=== PATIENT | male | born 1975 | race Caucasian/White ===

== ENCOUNTER 2025-02-07 14:49 | Inpatient (IN) | payer OTHER, SELFPAY ==
--- OUTSIDE RECORDS SUMMARY | 2025-02-07 14:57 | XMS_ITS ---
Author Organization [facility] Address [address], [place] [id number] Care Team Providers Care Global Regulatory Affairs Manager Name Role Phone No, PCP Primary Care Provider Bethel Byers Unavailable [phone] Nisha Villalobos Unavailable [phone] Encounters Encounter Location Date Provider Diagnosis [facility] [address] [place] [phone] 03/20/2024 Nisha Villalobos Plan Of Treatment No Information Progress Notes * Jeff WILHELMsDOB:1975 (49 yo M)Acc No.[id number]:03/20/2024 Case Management Patient:?Eric WILHELM Provider:?Nisha Villalobos :1975???Age:48 Y???Sex:Male Carlos e:03/20/2024 Address:[address] [place], [place] [phone] Pcp:PCP No Subjective: * Chief Complaints: * ??? * Medical History:? Objective: Assessment: Plan: * Treatment: * Images: Billing Information: * Visit Code:? * Procedure Codes:? Care Plan Details* * Electronic signature of Dell Villalobos on 02/07/2025 at 02:57 PM EDT Sign off status: Pending * Provider:?Nisha Villalobos Date:? Generated for Deidra rogers/Mike/eTransmitting on:?02/07/2025 02:57 PM EDT
[2025-02-07 16:00] VITALS: BP 83/53; PULSE 78; RESP 18; TEMP 36.8; O2SAT 98
[2025-02-07 16:40] VITALS: BP 73/50; PULSE 70; RESP 18; O2SAT 97
[2025-02-07 16:44] VITALS: BMI 20.4
[2025-02-07 18:21] VITALS: BP 88/52; PULSE 68
--- NOTE | 2025-02-07 18:30 | PC.ADMIT ---
Eric was admitted to from [facility]'s ED at 3 pm with diagnosis of AUD and MDD. He was initially brought to the ED for SI- plan to slit wrists and had made superficial cuts when his family told him to stop and called EMS. He admits to daily alcohol abuse- drinks 2 pints of alcohol daily. He has a history of multiple inpatient admissions but this is his first time on . He has a right hand (5th metacarpal fracture he sustained 6 weeks ago and it is taped to pinky finger. He has a hx of gastritis, esophagitis, and MDD. He was calm, cooperative, and subdued on admission.? VS on admission were 83/53, pulse 78, o2 saturation 97% RA, afebrile, RR WNL. Last set of VS at time of transfer from [facility] (per nurse to nurse) were 99/72, pulse 66, rr 16, 98% RA. He was given a water pitcher and encouraged to drink additional water as he was dizzy upon standing. Dr Gaxiola is aware and RN will continue to monitor. He was able to participate in admission assessment, signed a CV with Dr gaxiola and signed TOM forms. He presently denies SI/HI/AVH and is open to [employer] information on smoking cessation but declines NRT. He vapes nicotine all throughout the day and denies all other illicit drug use. Tox screen negative per [facility] ED report and BAL 248. Pt denies SI/HI/AVH presently and reports he is able to ask for help if he feels unsafe. He rates both depression and anxiety 10/10 and feels that I need to stop putting everyone (my family) before me. He did not want to elaborate but he did express his need to learn self care. Routine Hospitalist consult pending at this time. He was oriented to the unit and placed on 15 min safety checks.
[2025-02-07 20:15] VITALS: BP 95/59; PULSE 59; RESP 20; TEMP 36.9; O2SAT 99
[2025-02-08 00:10] VITALS: BP 112/69; PULSE 65; RESP 16; TEMP 37.2; O2SAT 98
[2025-02-08 04:05] VITALS: BP 103/58; PULSE 61; RESP 16; TEMP 36.6; O2SAT 97
[2025-02-08 08:14] VITALS: BP 117/67; PULSE 68; TEMP 36.6; O2SAT 98
--- NOTE | 2025-02-08 11:47 | HO.PM.IMCN ---
History of Present Illness Data of Consult Service Date: 02/08/25 Primary Care Provider: KATHERIN Onael [facility] Reason for consult: Medical evaluation 49-year-old male with a past medical history of renal cell carcinoma status post chemo radio frequency ablation, hepatic steatosis, recent admission to [facility] for erosive esophagitis and upper GI bleeding, alcohol use disorder, right 5th medical carpal fracture, depression with suicidal ideation. He presented to the ED after he called the police and when they arrived he was attempting to cut his arms with a pocket knife. He was brought to the hospital and recommended inpatient psychiatric care for suicidal ideation. Per his medical history he sustained a 5th meta carpal fracture proximally 6 weeks ago. He denies any other significant medical history. Reports to me that he drinks 1 pint of vodka daily, he denies any symptoms of withdrawal and his vital signs are stable. On exam he is awake and alert, denies any concerns. Review of Systems Review of Systems: Denies any shortness of breath, chest pain, dizziness, lightheadedness, abdominal pain or discomfort, nausea vomiting or diarrhea PMFSH Social History Household Members: Family Household Members Other:: [place] Housing: House Do you presently have visiting nurse or other home services: No Patient Tobacco Use Status: Current someday Tobacco user e-Cigarette/Vaping Use: Currently Using Second Hand Smoke Exposure: No Meds Allergies Allergy/AdvReac Type Severity Reaction Status Date / Time No Known Allergies Allergy Unverified 05/29/20 19:25 [No Known Allergies*] Active Medications: Current Medications Acetaminophen (Acetaminophen 325 Mg Tablet) 650 mg PO Q6H PRN PRN Reason: Headache/Pain, Scale 1-10 Al Hydroxide/Mg Hydroxide (Magnesium Hydrox/Alum Hydrox 30 Ml Oral.Susp) 30 ml PO Q6H PRN PRN Reason: Heartburn/Nausea Hydroxyzine HCl (Hydroxyzine Hcl 25 Mg Tablet) 25 mg PO Q6H PRN PRN Reason: mild anxiety Lorazepam (Lorazepam 1 Mg Tablet) 1 mg PO Q2H PRN PRN Reason: CIWA 6-10 Lorazepam (Lorazepam 1 Mg Tablet) 2 mg PO Q2H PRN PRN Reason: CIWA 11 and above Magnesium Hydroxide (Milk Of Magnesia 30 Ml Oral.Susp) 30 ml PO DAILY PRN PRN Reason: Constipation Nicotine (Nicotine 21 Mg Patch.Td24) 21 mg TRANSDERMA DAILY PRN PRN Reason: smoking cessation Nicotine Polacrilex (Nicotine Polacrilex 2 Mg Gum) 4 mg BUCCAL Q2H PRN PRN Reason: Nicotine Cravings Olanzapine (Olanzapine 5 Mg Tablet) 5 mg PO TID PRN PRN Reason: agitation Trazodone HCl (Trazodone Hcl 50 Mg Tablet) 50 mg PO BEDTIME MRX1 PRN PRN Reason: Insomnia Home Medications ?Medication ?Instructions ?Recorded ?Confirmed ?Last Taken ?Type Multivitamin And Mineral 1XD 02/08/25 Unknown History citalopram 20 mg tablet 20 mg PO DAILY 02/08/25 02/08/25 Unknown History clonidine HCl 0.1 mg tablet 0.1 mg PO BID PRN anxiety/sleep 02/08/25 02/08/25 Unknown History hydroxyzine HCl 50 mg tablet mg 1XD PRN anxiety/sleep 02/08/25 Unknown History melatonin 5 mg tablet mg 1XD PRN Sleep 02/08/25 Unknown History pantoprazole 40 mg tablet,delayed mg PO 1XD 02/08/25 Unknown History release pyridoxine (vitamin B6) 50 mg mg 1XD 02/08/25 Unknown History tablet (Vitamin B-6) Physical Exam Vital Signs and Narrative: Vital Signs: Last Vital Signs Temp 97.8 F 02/08/25 08:14 Pulse 68 02/08/25 08:14 Resp 16 02/08/25 04:05 BP 117/67 02/08/25 08:14 Pulse Ox 98 02/08/25 08:14 O2 Del Method Room Air 02/08/25 08:14 BMI result Body Mass Index 20.4 Alert and oriented X3, able to give good history. Neuro: CN II-X11 intact, no deficits, visual acuity intact EYES: PERRLA, EOM intact ENT: hearing intact, uvula midline, lips moist, nares patent no epistaxis Cardiac: S1 S2 RRR, no edema in Lower ext Pulmonary: lungs clear to auscultation, No increased WOB. Abdominal: BS active in all 4 quadrants, no guarding or tenderness MSK: Strength 5/5 upper and lower extremities : Deferred Extremities: no edema in lower extremities Psych: mood stable, calm and cooperative. Skin: Warm and dry, Intact. Multiple scratches to left inner left without evidence of infection. Assessment and Plan (1) Erosive esophagitis: Status: Acute Plan Major depressive disorder with suicidal ideation/alcohol use disorder Treatment per psychiatric team Boxer's fracture right 5th metatarsal Positive deformity present likely due to not being splinted properly [facility]. Sami splint for comfort Erosive esophagitis Patient with recent episodes of bloody vomiting and melena Recently discharged from [facility] 01/09 It was recommended that he take Protonix twice daily for 8 weeks and then change to daily after that. Continue Prilosec twice daily for 8 weeks then decrease to daily. Patient never picked up prescription therefore never started the recommended treatment. Continue to encouraged to abstain from EtOH, avoid NSAIDs He will need to follow up with GI as outpatient H&H stable 12.6/38.4 History of renal cell carcinoma status post ablation He [facility]
[2025-02-08 12:00] VITALS: BP 128/83; PULSE 97; TEMP 36.6; O2SAT 100
[2025-02-08] MEDS: LORazepam 1 MG TABLET PO (13:05)
--- NOTE | 2025-02-08 14:03 | P.HPPS_ITS ---
HPI Date of Service: 02/08/25 Chief Complaint: Alcohol use d/o, MDD Sources of Information: patient interviewed, chart reviewed and crisis/core team assessment reviewed HPI Subjective Notes: Conditional Voluntary and 3 Day Narrative: Patient is a 49-year-old male with history of depression, anxiety, alcohol use disorder who presents for depression and SI in the face of relational strife. Patient reports that about 2-3 weeks ago he was discharged from [facility] following suicidal gesture where he called ambulance himself. Says for the past 2 weeks he has been doing good, taking his medications, taking care of chores, responsibilities, and remaining sober...This past week, however, he drank on Tuesday, a half pt; on Tuesday he lost a credit card in his family members got angry at him, reprimanded him and criticizing him; this hurt his feelings and he again drank about a pt of liquor; feeling frustrated, lonely and he emotional he superficially cut his arm and called the ambulance; reflecting, patient said he was not wanting to but just feeling angry and wanting to hurt himself. Patient says that on his medications, when sober he feels overall in good mood however he acknowledges high level of emotional reactivity; he agrees to starting Intuniv to see if that can help with impulse control. 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 Trauma History: Denies Diagnostics Vital Signs (24Hr): Vital Signs - 24 hr 02/07/25 16:00 02/07/25 16:40 02/07/25 18:21 Temperature 98.2 F Pulse Rate 78 70 68 Respiratory Rate 18 18 Blood Pressure 83/53 L 73/50 L 88/52 L Pulse Oximetry 98 97 Oxygen Delivery Method Room Air Venturi Mask Room Air 02/07/25 20:15 02/08/25 00:10 02/08/25 04:05 Temperature 98.4 F 99.0 F 97.8 F Pulse Rate 59 65 61 Respiratory Rate 20 16 16 Blood Pressure 95/59 L 112/69 103/58 L Pulse Oximetry 99 98 97 Oxygen Delivery Method Room Air Room Air Room Air 02/08/25 08:14 02/08/25 12:00 Temperature 97.8 F 97.9 F Pulse Rate 68 97 Respiratory Rate Blood Pressure 117/67 128/83 Pulse Oximetry 98 100 Oxygen Delivery Method Room Air BMI result Body Mass Index 20.4 Meds/Allergies Meds Home Medications ?Medication ?Instructions ?Recorded ?Confirmed ?Type Multivitamin And Mineral 1XD 02/08/25 History citalopram 20 mg tablet 20 mg PO DAILY 02/08/25 02/08/25 History clonidine HCl 0.1 mg tablet 0.1 mg PO BID PRN anxiety/sleep 02/08/25 02/08/25 History hydroxyzine HCl 50 mg tablet mg 1XD PRN anxiety/sleep 02/08/25 History melatonin 5 mg tablet mg 1XD PRN Sleep 02/08/25 History pantoprazole 40 mg tablet,delayed mg PO 1XD 02/08/25 History release pyridoxine (vitamin B6) 50 mg mg 1XD 02/08/25 History tablet (Vitamin B-6) Allergies Allergies Allergy/AdvReac Type Severity Reaction Status Date / Time No Known Allergies Allergy Unverified 05/29/20 19:25 [No Known Allergies*] Mental Status Exam Mental Status Exam Narrative: Pt is alert and oriented; behavior is cooperative, friendly and calm; patient is not in distress; dressed in hospital attire, unkempt; mood is described as depressed and affect congruent, downcast; eye contact appropriate; Speech is normal rate, volume and prosody and not pressured; saw psychomotor retardation present; thought process is organized and goal directed; Thought content is on tx; otherwise pertinent to relevant topics and without any delusional content, paranoid ideations or grandiosity; denies any SI/HI. Denies AVH and there is no evidence of perceptual disturbance. Patients insight and judgment appear intact. Assessment & Plan Assessment & Plan (1) Major depressive disorder: Status: Acute Code(s): F32.9 - Major depressive disorder, single episode, unspecified (2) Alcohol use disorder: Status: Acute Code(s): F10.90 - Alcohol use, unspecified, uncomplicated Plan Patient is a 49-year-old male with history of depression, anxiety, alcohol use disorder who presents for depression and SI in the face of relational strife. Patient reports that about 2-3 weeks ago he was discharged from [facility] following suicidal gesture where he called ambulance himself. Says for the past 2 weeks he has been doing good, taking his medications, taking care of chores, responsibilities, and remaining sober...This past week, however, he drank on Tuesday, a half pt; on Tuesday he lost a credit card in his family members got angry at him, reprimanded him and criticizing him; this hurt his feelings and he again drank about a pt of liquor; feeling frustrated, lonely and he emotional he superficially cut his arm and called the ambulance; reflecting, patient said he was not wanting to but just feeling angry and wanting to hurt himself. Patient says that on his medications, when sober he feels overall in good mood however he acknowledges high level of emotional reactivity; he agrees to starting Intuniv to see if that can help with impulse control. Patient denies AVH; no manic behaviors Formulation/clinical reasoning: Patient struggles with emotional reactivity; agrees to try Intuniv understanding the risks/side effects, to see if this can help with impulsivity. Otherwise continue on home medication regimen Patient not in withdrawal; will DC CIWA Plan: CV Q 15 minute checks Start Intuniv 1 mg daily Continue home medications DC CIWA Patient educated on: diagnosis, medication risk/benefits, substance abuse and therapeutic strategies Informed Consent: understands Reason for continued inpatient stay Substantial Risk for: rapid decompensation Statement Statement: I have reviewed the history and physical and performed a pertinent examination on my patient. No changes have occurred unless specified. If the History and Physical was not performed prior to admission, the Hospitalist's service will be consulted for completing the admission physical. Time Spent With Patient Time: Total time managing care of this patient today ____ minutes.
[2025-02-08] MEDS: guanFACINE HCl ER 1 MG TAB.ER.24H PO (14:41)
[2025-02-08 20:00] VITALS: BP 126/78; PULSE 81; RESP 16; TEMP 36.8; O2SAT 100
[2025-02-08] MEDS: Milk of Magnesia 30 ML ORAL.SUSP PO (22:05)
[2025-02-08 22:06] VITALS: BP 136/92
[2025-02-08] MEDS: hydrOXYzine HCL 25 MG TABLET PO (22:06)
[2025-02-08] MEDS: cloNIDine HCL 0.1 MG TABLET PO (22:06)
[2025-02-08] MEDS: Acetaminophen 325 MG TABLET 650 MG PO (22:06)
[2025-02-09 07:40] VITALS: BP 114/68; PULSE 64; TEMP 36.6; O2SAT 99
[2025-02-09] MEDS: Omeprazole 20 MG CAPSULE.DR PO (08:15)
[2025-02-09 08:58] VITALS: BP 120/70
[2025-02-09] MEDS: Escitalopram Oxalate 10 MG TABLET PO (08:58)
[2025-02-09] MEDS: cloNIDine HCL 0.1 MG TABLET PO ×2 (08:58→21:47)
[2025-02-09] MEDS: guanFACINE HCl ER 1 MG TAB.ER.24H PO (08:58)
[2025-02-09 09:18] LABS: Estimated Average Glucose 85 mg/dL; Hemoglobin A1C 83.3244 umol/L; Hemoglobin A1c % 4.6 % (<6.0); Total Hemoglobin (HGBA1C) 3174.1168 umol/L
[2025-02-09 09:35] LABS: Alanine Aminotransferase 29 U/L (0-40); Albumin Level 3.9 g/dL (3.5-5.0); Alkaline Phosphatase 85 U/L (39-117); Anion Gap 12 (12-20); Aspartate Amino Transferase 30 U/L (5-37); Bilirubin Total 0.1 mg/dL (0.0-1.0); Blood Urea Nitrogen 19 mg/dL (9-16); Calcium 8.8 mg/dL (8.4-10.2); Carbon Dioxide 22 mmol/L (22-29); Chloride 113 mmol/L (96-108); Cholesterol 231 mg/dL (<200); Creatinine Clr Calc Pharmacy 70.4; Estimated Glomerular Filt Rate > 60; Glucose Random 85 mg/dL (60-115); HDL Cholesterol 50 mg/dL (>40); Sodium 143 mmol/L (135-145); Total Protein 6.6 g/dL (6.5-8.0); Triglycerides 423 mg/dL (<150)
[2025-02-09 09:40] LABS: TSH reflex Free T4 1.96 uIU/mL (0.32-4.0)
--- NOTE | 2025-02-09 10:34 | HO.PSYCHPN ---
Subjective Subjective Date of Service: 02/09/25 Reason For Visit: Alcohol use d/o, MDD Subjective Notes: Conditional Voluntary Interim History: Patient was seen and discussed in rounds today. Records and plans were reviewed. CIWA protocol was discontinued yesterday with no subsequent signs.. In bed a lot. Attending some groups. Slept 7 hours without trazodone. No SI. No changes were made today Review of Systems Review of Systems Yes all other systems are reviewed and are negative Mental Status Exam Mental Status Exam Narrative: In today's visit he is alert, pleasant and interactive. Normal speech. Little eye contact. Affect is appropriate and subdued. No signs of psychosis. No SI. Cognitively intact. Judgment is intact Diagnostics Vital Signs (24Hr): Vital Signs - 24 hr 02/08/25 12:00 02/08/25 20:00 02/08/25 22:06 Temperature 97.9 F 98.2 F Pulse Rate 97 81 Respiratory Rate 16 Blood Pressure 128/83 126/78 136/92 H Pulse Oximetry 100 100 Oxygen Delivery Method Room Air 02/09/25 07:40 02/09/25 08:58 Temperature 97.8 F Pulse Rate 64 Respiratory Rate Blood Pressure 114/68 120/70 Pulse Oximetry 99 Oxygen Delivery Method Room Air BMI result Body Mass Index 20.4 Labs 02/09/25 08:36 Labs: Laboratory Results - last 48 hr 02/09/25 08:36 Sodium 143 Potassium 4.0 Chloride 113 H Carbon Dioxide 22 Anion Gap 12 BUN 19 H Creatinine 1.02 Estim Creat Clear Calc 70.4 Estimated GFR > 60 Random Glucose 85 Estimat Average Glucose 85 Hemoglobin A1c % 4.6 Calcium 8.8 Total Bilirubin 0.1 AST 30 ALT 29 Alkaline Phosphatase 85 Total Protein 6.6 Albumin 3.9 Triglycerides 423 H Cholesterol 231 H LDL Cholesterol, Calc TNP HDL Cholesterol 50 TSH 1.96 Medications Medications Current Medications Acetaminophen (Acetaminophen 325 Mg Tablet) 650 mg PO Q6H PRN PRN Reason: Headache/Pain, Scale 1-10 Last Admin: 02/08/25 22:06 Dose: 650 mg Al Hydroxide/Mg Hydroxide (Magnesium Hydrox/Alum Hydrox 30 Ml Oral.Susp) 30 ml PO Q6H PRN PRN Reason: Heartburn/Nausea Clonidine HCl (Clonidine Hcl 0.1 Mg Tablet) 0.1 mg PO Q4H PRN; Protocol PRN Reason: moderate anxiety/sleep Last Admin: 02/08/25 22:06 Dose: 0.1 mg Clonidine HCl (Clonidine Hcl 0.1 Mg Tablet) 0.1 mg PO DAILY [facility]; Protocol Last Admin: 02/09/25 08:58 Dose: 0.1 mg Escitalopram Oxalate (Escitalopram Oxalate 10 Mg Tablet) 10 mg PO DAILY [facility] Last Admin: 02/09/25 08:58 Dose: 10 mg Guanfacine HCl (Guanfacine Hcl Er 1 Mg Tab.Er.24h) 1 mg PO DAILY [facility] Last Admin: 02/09/25 08:58 Dose: 1 mg Hydroxyzine HCl (Hydroxyzine Hcl 25 Mg Tablet) 25 mg PO Q6H PRN PRN Reason: mild anxiety Last Admin: 02/08/25 22:06 Dose: 25 mg Magnesium Hydroxide (Milk Of Magnesia 30 Ml Oral.Susp) 30 ml PO DAILY PRN PRN Reason: Constipation Last Admin: 02/08/25 22:05 Dose: 30 ml Nicotine (Nicotine 21 Mg Patch.Td24) 21 mg TRANSDERMA DAILY PRN PRN Reason: smoking cessation Nicotine Polacrilex (Nicotine Polacrilex 2 Mg Gum) 4 mg BUCCAL Q2H PRN PRN Reason: Nicotine Cravings Olanzapine (Olanzapine 5 Mg Tablet) 5 mg PO TID PRN PRN Reason: agitation Omeprazole (Omeprazole 20 Mg Capsule.Dr) 20 mg PO BID@0630,1630 [facility] Last Admin: 02/09/25 08:15 Dose: 20 mg Trazodone HCl (Trazodone Hcl 50 Mg Tablet) 50 mg PO BEDTIME MRX1 PRN PRN Reason: Insomnia Allergies Allergies Allergy/AdvReac Type Severity Reaction Status Date / Time No Known Allergies Allergy Unverified 05/29/20 19:25 [No Known Allergies*] Assessment & Plan Assessment & Plan (1) Major depressive disorder: Status: Acute Code(s): F32.9 - Major depressive disorder, single episode, unspecified (2) Alcohol use disorder: Status: Acute Code(s): F10.90 - Alcohol use, unspecified, uncomplicated Plan Patient is a 49-year-old male with history of depression, anxiety, alcohol use disorder who presents for depression and SI in the face of relational strife. Patient reports that about 2-3 weeks ago he was discharged from [facility] following suicidal gesture where he called ambulance himself. Says for the past 2 weeks he has been doing good, taking his medications, taking care of chores, responsibilities, and remaining sober...This past week, however, he drank on Tuesday, a half pt; on Tuesday he lost a credit card in his family members got angry at him, reprimanded him and criticizing him; this hurt his feelings and he again drank about a pt of liquor; feeling frustrated, lonely and he emotional he superficially cut his arm and called the ambulance; reflecting, patient said he was not wanting to but just feeling angry and wanting to hurt himself. Patient says that on his medications, when sober he feels overall in good mood however he acknowledges high level of emotional reactivity; he agrees to starting Intuniv to see if that can help with impulse control. Patient denies AVH; no manic behaviors Formulation/clinical reasoning: Patient struggles with emotional reactivity; agrees to try Intuniv understanding the risks/side effects, to see if this can help with impulsivity. Otherwise continue on home medication regimen Patient not in withdrawal; will DC CIWA Plan: CV Q 15 minute checks Start Intuniv 1 mg daily Continue home medications DC CIWA 02/09: Continue current regimen and plans. Reason for continued inpatient stay Substantial Risk for: med/psych decompensation Time Spent With Patient Time: Total time managing care of this patient today ____ minutes.
[2025-02-09 19:45] VITALS: BP 125/73; PULSE 71; RESP 16; TEMP 36.6; O2SAT 100
[2025-02-09] MEDS: hydrOXYzine HCL 25 MG TABLET PO (21:46)
[2025-02-09 21:47] VITALS: BP 104/61
[2025-02-10 08:00] VITALS: BP 101/68; PULSE 76; TEMP 36.6; O2SAT 98
--- NOTE | 2025-02-10 08:41 | HO.PSYCHPN ---
Subjective Subjective Date of Service: 02/10/25 Reason For Visit: Alcohol use d/o, MDD Subjective Notes: Conditional Voluntary Interim History: Patient was seen and discussed in rounds today. Records and plans were reviewed. He has been stable and is doing well. No complaints or side effects. No indications of withdrawal symptoms. He attended 2 groups. Eating and sleeping well. He wanted to switch his Prilosec to Protonix which is unavailable here. No SI. No changes were made today Review of Systems Review of Systems Yes all other systems are reviewed and are negative Mental Status Exam Mental Status Exam Narrative: In today's visit he is alert, pleasant and interactive. Normal speech. Little eye contact. Affect is appropriate and subdued. No signs of psychosis. No SI. Cognitively intact. Judgment is intact Diagnostics Vital Signs (24Hr): Vital Signs - 24 hr 02/09/25 08:58 02/09/25 19:45 02/09/25 21:47 Temperature 97.8 F Pulse Rate 71 Respiratory Rate 16 Blood Pressure 120/70 125/73 104/61 Pulse Oximetry 100 Oxygen Delivery Method Room Air 02/10/25 08:00 Temperature 97.8 F Pulse Rate 76 Respiratory Rate Blood Pressure 101/68 Pulse Oximetry 98 Oxygen Delivery Method Room Air BMI result Body Mass Index 20.4 Labs 02/09/25 08:36 Labs: Laboratory Results - last 48 hr 02/09/25 08:36 Sodium 143 Potassium 4.0 Chloride 113 H Carbon Dioxide 22 Anion Gap 12 BUN 19 H Creatinine 1.02 Estim Creat Clear Calc 70.4 Estimated GFR > 60 Random Glucose 85 Estimat Average Glucose 85 Hemoglobin A1c % 4.6 Calcium 8.8 Total Bilirubin 0.1 AST 30 ALT 29 Alkaline Phosphatase 85 Total Protein 6.6 Albumin 3.9 Triglycerides 423 H Cholesterol 231 H LDL Cholesterol, Calc TNP HDL Cholesterol 50 TSH 1.96 Medications Medications Current Medications Acetaminophen (Acetaminophen 325 Mg Tablet) 650 mg PO Q6H PRN PRN Reason: Headache/Pain, Scale 1-10 Last Admin: 02/08/25 22:06 Dose: 650 mg Al Hydroxide/Mg Hydroxide (Magnesium Hydrox/Alum Hydrox 30 Ml Oral.Susp) 30 ml PO Q6H PRN PRN Reason: Heartburn/Nausea Clonidine HCl (Clonidine Hcl 0.1 Mg Tablet) 0.1 mg PO Q4H PRN; Protocol PRN Reason: moderate anxiety/sleep Last Admin: 02/09/25 21:47 Dose: 0.1 mg Clonidine HCl (Clonidine Hcl 0.1 Mg Tablet) 0.1 mg PO DAILY [facility]; Protocol Last Admin: 02/09/25 08:58 Dose: 0.1 mg Escitalopram Oxalate (Escitalopram Oxalate 10 Mg Tablet) 10 mg PO DAILY [facility] Last Admin: 02/09/25 08:58 Dose: 10 mg Guanfacine HCl (Guanfacine Hcl Er 1 Mg Tab.Er.24h) 1 mg PO DAILY [facility] Last Admin: 02/09/25 08:58 Dose: 1 mg Hydroxyzine HCl (Hydroxyzine Hcl 25 Mg Tablet) 25 mg PO Q6H PRN PRN Reason: mild anxiety Last Admin: 02/09/25 21:46 Dose: 25 mg Magnesium Hydroxide (Milk Of Magnesia 30 Ml Oral.Susp) 30 ml PO DAILY PRN PRN Reason: Constipation Last Admin: 02/08/25 22:05 Dose: 30 ml Nicotine (Nicotine 21 Mg Patch.Td24) 21 mg TRANSDERMA DAILY PRN PRN Reason: smoking cessation Nicotine Polacrilex (Nicotine Polacrilex 2 Mg Gum) 4 mg BUCCAL Q2H PRN PRN Reason: Nicotine Cravings Olanzapine (Olanzapine 5 Mg Tablet) 5 mg PO TID PRN PRN Reason: agitation Omeprazole (Omeprazole 20 Mg Capsule.Dr) 20 mg PO BID@0630,1630 [facility] Last Admin: 02/09/25 17:41 Dose: Not Given Trazodone HCl (Trazodone Hcl 50 Mg Tablet) 50 mg PO BEDTIME MRX1 PRN PRN Reason: Insomnia Allergies Allergies Allergy/AdvReac Type Severity Reaction Status Date / Time No Known Allergies Allergy Unverified 05/29/20 19:25 [No Known Allergies*] Assessment & Plan Assessment & Plan (1) Major depressive disorder: Status: Acute Code(s): F32.9 - Major depressive disorder, single episode, unspecified (2) Alcohol use disorder: Status: Acute Code(s): F10.90 - Alcohol use, unspecified, uncomplicated Plan Patient is a 49-year-old male with history of depression, anxiety, alcohol use disorder who presents for depression and SI in the face of relational strife. Patient reports that about 2-3 weeks ago he was discharged from [facility] following suicidal gesture where he called ambulance himself. Says for the past 2 weeks he has been doing good, taking his medications, taking care of chores, responsibilities, and remaining sober...This past week, however, he drank on Tuesday, a half pt; on Tuesday he lost a credit card in his family members got angry at him, reprimanded him and criticizing him; this hurt his feelings and he again drank about a pt of liquor; feeling frustrated, lonely and he emotional he superficially cut his arm and called the ambulance; reflecting, patient said he was not wanting to but just feeling angry and wanting to hurt himself. Patient says that on his medications, when sober he feels overall in good mood however he acknowledges high level of emotional reactivity; he agrees to starting Intuniv to see if that can help with impulse control. Patient denies AVH; no manic behaviors Formulation/clinical reasoning: Patient struggles with emotional reactivity; agrees to try Intuniv understanding the risks/side effects, to see if this can help with impulsivity. Otherwise continue on home medication regimen Patient not in withdrawal; will DC CIWA Plan: CV Q 15 minute checks Start Intuniv 1 mg daily Continue home medications DC CIWA 02/10: Continue current regimen and plans. Patient educated on: medication risk/benefits Reason for continued inpatient stay Substantial Risk for: med/psych decompensation Time Spent With Patient Time: Total time managing care of this patient today ____ minutes.
[2025-02-10] MEDS: Escitalopram Oxalate 10 MG TABLET PO (09:06)
[2025-02-10 09:07] VITALS: BP 101/68
[2025-02-10] MEDS: guanFACINE HCl ER 1 MG TAB.ER.24H PO (09:07)
[2025-02-10] MEDS: cloNIDine HCL 0.1 MG TABLET PO ×2 (09:07→20:31)
[2025-02-10] MEDS: Acetaminophen 325 MG TABLET 650 MG PO (13:42)
[2025-02-10] MEDS: Omeprazole 20 MG CAPSULE.DR PO (17:08)
[2025-02-10 20:00] VITALS: BP 99/63; PULSE 66; RESP 15; TEMP 36.6; O2SAT 100
[2025-02-10] MEDS: hydrOXYzine HCL 25 MG TABLET PO (20:32)
[2025-02-11] MEDS: Omeprazole 20 MG CAPSULE.DR PO ×2 (06:47→16:28)
[2025-02-11 08:00] VITALS: BP 97/65; PULSE 68; RESP 18; TEMP 36.8; O2SAT 99
[2025-02-11 08:43] VITALS: BP 97/65
[2025-02-11] MEDS: guanFACINE HCl ER 1 MG TAB.ER.24H PO (08:43)
[2025-02-11] MEDS: Escitalopram Oxalate 10 MG TABLET PO (08:43)
[2025-02-11] MEDS: Acetaminophen 325 MG TABLET 650 MG PO (11:57)
[2025-02-11 20:00] VITALS: BP 121/74; PULSE 75; TEMP 37.2; O2SAT 100
[2025-02-11] MEDS: cloNIDine HCL 0.1 MG TABLET PO (21:04)
[2025-02-11] MEDS: hydrOXYzine HCL 25 MG TABLET PO (21:04)
--- NOTE | 2025-02-11 21:07 | HO.PSYCHPN ---
Subjective Subjective Date of Service: 02/11/25 Reason For Visit: Alcohol use d/o, MDD Interim History: met with patient; discussed with team pt reports mood is good' and he feels back to his regular self; no SI. Pt eating and sleeping well; wants to discuss discharge. Mental Status Exam Mental Status Exam Narrative: Pt is alert and oriented; behavior is cooperative, friendly and calm; patient is not in distress; dressed in casual attire with adequate hygiene; mood is described as good and affect congruent; eye contact appropriate; Speech is normal rate, volume and prosody and not pressured; no psychomotor agitation/retardation present; thought process is organized and goal directed; Thought content is on tx; otherwise pertinent to relevant topics and without any delusional content, paranoid ideations or grandiosity; denies any SI/HI. Denies AVH and there is no evidence of perceptual disturbance. Patients insight and judgment appear intact. Diagnostics Vital Signs (24Hr): Vital Signs - 24 hr 02/11/25 08:00 02/11/25 08:43 02/11/25 20:00 Temperature 98.2 F 98.9 F Pulse Rate 68 75 Respiratory Rate 18 Blood Pressure 97/65 97/65 121/74 Pulse Oximetry 99 100 Oxygen Delivery Method Room Air Room Air BMI result Body Mass Index 20.4 Labs 02/09/25 08:36 Medications Medications Current Medications Acetaminophen (Acetaminophen 325 Mg Tablet) 650 mg PO Q6H PRN PRN Reason: Headache/Pain, Scale 1-10 Last Admin: 02/11/25 11:57 Dose: 650 mg Al Hydroxide/Mg Hydroxide (Magnesium Hydrox/Alum Hydrox 30 Ml Oral.Susp) 30 ml PO Q6H PRN PRN Reason: Heartburn/Nausea Clonidine HCl (Clonidine Hcl 0.1 Mg Tablet) 0.1 mg PO Q4H PRN; Protocol PRN Reason: moderate anxiety/sleep Last Admin: 02/10/25 20:31 Dose: 0.1 mg Clonidine HCl (Clonidine Hcl 0.1 Mg Tablet) 0.1 mg PO DAILY [facility]; Protocol Last Admin: 02/11/25 08:43 Dose: Not Given Escitalopram Oxalate (Escitalopram Oxalate 10 Mg Tablet) 10 mg PO DAILY [facility] Last Admin: 02/11/25 08:43 Dose: 10 mg Guanfacine HCl (Guanfacine Hcl Er 1 Mg Tab.Er.24h) 1 mg PO DAILY [facility] Last Admin: 02/11/25 08:43 Dose: 1 mg Hydroxyzine HCl (Hydroxyzine Hcl 25 Mg Tablet) 25 mg PO Q6H PRN PRN Reason: mild anxiety Last Admin: 02/10/25 20:32 Dose: 25 mg Magnesium Hydroxide (Milk Of Magnesia 30 Ml Oral.Susp) 30 ml PO DAILY PRN PRN Reason: Constipation Last Admin: 02/08/25 22:05 Dose: 30 ml Nicotine (Nicotine 21 Mg Patch.Td24) 21 mg TRANSDERMA DAILY PRN PRN Reason: smoking cessation Nicotine Polacrilex (Nicotine Polacrilex 2 Mg Gum) 4 mg BUCCAL Q2H PRN PRN Reason: Nicotine Cravings Olanzapine (Olanzapine 5 Mg Tablet) 5 mg PO TID PRN PRN Reason: agitation Omeprazole (Omeprazole 20 Mg Capsule.Dr) 20 mg PO BID@0630,1630 [facility] Last Admin: 02/11/25 16:28 Dose: 20 mg Trazodone HCl (Trazodone Hcl 50 Mg Tablet) 50 mg PO BEDTIME MRX1 PRN PRN Reason: Insomnia Allergies Allergies Allergy/AdvReac Type Severity Reaction Status Date / Time No Known Allergies Allergy Unverified 05/29/20 19:25 [No Known Allergies*] Assessment & Plan Assessment & Plan (1) Major depressive disorder: Status: Acute Code(s): F32.9 - Major depressive disorder, single episode, unspecified (2) Alcohol use disorder: Status: Acute Code(s): F10.90 - Alcohol use, unspecified, uncomplicated Plan Patient is a 49-year-old male with history of depression, anxiety, alcohol use disorder who presents for depression and SI in the face of relational strife. Patient reports that about 2-3 weeks ago he was discharged from [facility] following suicidal gesture where he called ambulance himself. Says for the past 2 weeks he has been doing good, taking his medications, taking care of chores, responsibilities, and remaining sober...This past week, however, he drank on Tuesday, a half pt; on Tuesday he lost a credit card in his family members got angry at him, reprimanded him and criticizing him; this hurt his feelings and he again drank about a pt of liquor; feeling frustrated, lonely and he emotional he superficially cut his arm and called the ambulance; reflecting, patient said he was not wanting to but just feeling angry and wanting to hurt himself. Patient says that on his medications, when sober he feels overall in good mood however he acknowledges high level of emotional reactivity; he agrees to starting Intuniv to see if that can help with impulse control. Patient denies AVH; no manic behaviors Formulation/clinical reasoning: Patient struggles with emotional reactivity; agrees to try Intuniv understanding the risks/side effects, to see if this can help with impulsivity. Otherwise continue on home medication regimen Patient not in withdrawal; will DC [facility] 02/11 pt reports mood is good' and he feels back to his regular self; no SI. Pt eating and sleeping well; wants to discuss discharge. -in good behavioral/impulse control Plan: CV Q 15 minute checks Intuniv 1 mg daily Continue home medications DC [facility]WA 02/10: Continue current regimen and plans. Patient educated on: diagnosis Informed Consent: understands Reason for continued inpatient stay Substantial Risk for: stable for discharge Time Spent With Patient Time: Total time managing care of this patient today ____ minutes.
[2025-02-12] MEDS: Omeprazole 20 MG CAPSULE.DR PO ×2 (06:00→17:56)
[2025-02-12 08:00] VITALS: BP 102/65; PULSE 78; RESP 17; TEMP 37.1; O2SAT 98
[2025-02-12] MEDS: cloNIDine HCL 0.1 MG TABLET PO ×2 (08:51→21:05)
[2025-02-12] MEDS: Escitalopram Oxalate 10 MG TABLET PO (08:52)
[2025-02-12] MEDS: guanFACINE HCl ER 1 MG TAB.ER.24H PO (08:52)
[2025-02-12] MEDS: Nicotine Polacrilex 2 MG GUM 4 MG BUCCAL (17:58)
[2025-02-12] MEDS: OLANZapine 5 MG TABLET PO (18:13)
[2025-02-12 20:00] VITALS: BP 111/69; PULSE 78; TEMP 36.9; O2SAT 100
[2025-02-12 21:05] VITALS: BP 111/69
[2025-02-12] MEDS: hydrOXYzine HCL 25 MG TABLET PO (21:05)
[2025-02-12] MEDS: traZODone HCL 50 MG TABLET PO (23:35)
[2025-02-13] MEDS: Omeprazole 20 MG CAPSULE.DR PO ×2 (06:32→18:57)
[2025-02-13 08:00] VITALS: BP 101/70; PULSE 80; RESP 16; TEMP 36.8; O2SAT 97
[2025-02-13 08:49] VITALS: BP 101/70
[2025-02-13] MEDS: cloNIDine HCL 0.1 MG TABLET PO ×2 (08:49→21:08)
[2025-02-13] MEDS: guanFACINE HCl ER 1 MG TAB.ER.24H PO (08:49)
[2025-02-13] MEDS: Escitalopram Oxalate 10 MG TABLET PO (08:50)
[2025-02-13 20:00] VITALS: BP 114/74; PULSE 84; TEMP 36.9; O2SAT 98
[2025-02-13] MEDS: hydrOXYzine HCL 25 MG TABLET PO (21:07)
[2025-02-13 21:08] VITALS: BP 114/74
[2025-02-13] MEDS: traZODone HCL 50 MG TABLET PO (21:08)
[2025-02-14] MEDS: Acetaminophen 325 MG TABLET 650 MG PO (06:17)
[2025-02-14] MEDS: Omeprazole 20 MG CAPSULE.DR PO (06:17)
[2025-02-14 08:00] VITALS: BP 99/64; PULSE 80; RESP 16; TEMP 36.9; O2SAT 98
[2025-02-14] MEDS: cloNIDine HCL 0.1 MG TABLET PO (08:36)
[2025-02-14] MEDS: guanFACINE HCl ER 1 MG TAB.ER.24H PO (08:37)
[2025-02-14] MEDS: Escitalopram Oxalate 10 MG TABLET PO (08:37)
--- NOTE | 2025-02-14 09:17 | HO.PSYCHPN ---
Subjective Subjective Date of Service: 02/12/25 Reason For Visit: Alcohol use d/o, MDD Interim History: Late entry note for patient seen on 02/12/2025; discussed with team Continues to report that he is doing well, mood is good, future oriented, able to focus and grateful for help received. Looking forward to discharge Mental Status Exam Mental Status Exam Narrative: Pt is alert and oriented; behavior is cooperative, friendly and calm; patient is not in distress; dressed in casual attire with adequate hygiene; mood is described as good and affect congruent; eye contact appropriate; Speech is normal rate, volume and prosody and not pressured; no psychomotor agitation/retardation present; thought process is organized and goal directed; Thought content is on tx; otherwise pertinent to relevant topics and without any delusional content, paranoid ideations or grandiosity; denies any SI/HI. Denies AVH and there is no evidence of perceptual disturbance. Patients insight and judgment appear intact. Diagnostics Vital Signs (24Hr): Vital Signs - 24 hr 02/13/25 20:00 02/13/25 21:08 02/14/25 08:00 Temperature 98.4 F 98.5 F Pulse Rate 84 80 Respiratory Rate 16 Blood Pressure 114/74 114/74 99/64 Pulse Oximetry 98 98 Oxygen Delivery Method Room Air Room Air BMI result Body Mass Index 20.4 Labs 02/09/25 08:36 Medications Medications Current Medications Acetaminophen (Acetaminophen 325 Mg Tablet) 650 mg PO Q6H PRN PRN Reason: Headache/Pain, Scale 1-10 Last Admin: 02/14/25 06:17 Dose: 650 mg Al Hydroxide/Mg Hydroxide (Magnesium Hydrox/Alum Hydrox 30 Ml Oral.Susp) 30 ml PO Q6H PRN PRN Reason: Heartburn/Nausea Clonidine HCl (Clonidine Hcl 0.1 Mg Tablet) 0.1 mg PO Q4H PRN; Protocol PRN Reason: moderate anxiety/sleep Last Admin: 02/13/25 21:08 Dose: 0.1 mg Clonidine HCl (Clonidine Hcl 0.1 Mg Tablet) 0.1 mg PO DAILY [facility]; Protocol Last Admin: 02/14/25 08:36 Dose: 0.1 mg Escitalopram Oxalate (Escitalopram Oxalate 10 Mg Tablet) 10 mg PO DAILY [facility] Last Admin: 02/14/25 08:37 Dose: 10 mg Guanfacine HCl (Guanfacine Hcl Er 1 Mg Tab.Er.24h) 1 mg PO DAILY [facility] Last Admin: 02/14/25 08:37 Dose: 1 mg Hydroxyzine HCl (Hydroxyzine Hcl 25 Mg Tablet) 25 mg PO Q6H PRN PRN Reason: mild anxiety Last Admin: 02/13/25 21:07 Dose: 25 mg Magnesium Hydroxide (Milk Of Magnesia 30 Ml Oral.Susp) 30 ml PO DAILY PRN PRN Reason: Constipation Last Admin: 02/08/25 22:05 Dose: 30 ml Nicotine (Nicotine 21 Mg Patch.Td24) 21 mg TRANSDERMA DAILY PRN PRN Reason: smoking cessation Nicotine Polacrilex (Nicotine Polacrilex 2 Mg Gum) 4 mg BUCCAL Q2H PRN PRN Reason: Nicotine Cravings Last Admin: 02/12/25 17:58 Dose: 4 mg Olanzapine (Olanzapine 5 Mg Tablet) 5 mg PO TID PRN PRN Reason: agitation Last Admin: 02/12/25 18:13 Dose: 5 mg Omeprazole (Omeprazole 20 Mg Capsule.Dr) 20 mg PO BID@0630,1630 [facility] Last Admin: 02/14/25 06:17 Dose: 20 mg Trazodone HCl (Trazodone Hcl 50 Mg Tablet) 50 mg PO BEDTIME MRX1 PRN PRN Reason: Insomnia Last Admin: 02/13/25 21:08 Dose: 50 mg Allergies Allergies Allergy/AdvReac Type Severity Reaction Status Date / Time No Known Allergies Allergy Unverified 05/29/20 19:25 [No Known Allergies*] Assessment & Plan Assessment & Plan (1) Major depressive disorder: Status: Acute Code(s): F32.9 - Major depressive disorder, single episode, unspecified (2) Alcohol use disorder: Status: Acute Code(s): F10.90 - Alcohol use, unspecified, uncomplicated Plan Patient is a 49-year-old male with history of depression, anxiety, alcohol use disorder who presents for depression and SI in the face of relational strife. Patient reports that about 2-3 weeks ago he was discharged from [facility] following suicidal gesture where he called ambulance himself. Says for the past 2 weeks he has been doing good, taking his medications, taking care of chores, responsibilities, and remaining sober...This past week, however, he drank on Tuesday, a half pt; on Tuesday he lost a credit card in his family members got angry at him, reprimanded him and criticizing him; this hurt his feelings and he again drank about a pt of liquor; feeling frustrated, lonely and he emotional he superficially cut his arm and called the ambulance; reflecting, patient said he was not wanting to but just feeling angry and wanting to hurt himself. Patient says that on his medications, when sober he feels overall in good mood however he acknowledges high level of emotional reactivity; he agrees to starting Intuniv to see if that can help with impulse control. Patient denies AVH; no manic behaviors Formulation/clinical reasoning: Patient struggles with emotional reactivity; agrees to try Intuniv understanding the risks/side effects, to see if this can help with impulsivity. Otherwise continue on home medication regimen Patient not in withdrawal; will DC [facility] 02/11 pt reports mood is good' and he feels back to his regular self; no SI. Pt eating and sleeping well; wants to discuss discharge. -in good behavioral/impulse control 02/12 Continues to report that he is doing well, mood is good, future oriented, able to focus and grateful for help received. Looking forward to discharge Plan: CV Q 15 minute checks Intuniv 1 mg daily Continue home medications DC CIWA . Patient educated on: diagnosis and medication risk/benefits Informed Consent: understands Reason for continued inpatient stay Substantial Risk for: stable for discharge Time Spent With Patient Time: Total time managing care of this patient today ____ minutes.
--- NOTE | 2025-02-14 09:18 | HO.PSYCHPN ---
Subjective Subjective Date of Service: 02/13/25 Reason For Visit: Alcohol use d/o, MDD Interim History: Late entry note for patient seen on 02/13/2025; discussed with team Remained stable and focused on discharge; no complaints no requests Mental Status Exam Mental Status Exam Narrative: Pt is alert and oriented; behavior is cooperative, friendly and calm; can get triggered by peers in the milieu with outburst but able to be redirected; patient is not in distress; dressed in casual attire with adequate hygiene; mood is described as good and affect congruent; eye contact appropriate; Speech is normal rate, volume and prosody and not pressured; no psychomotor agitation/retardation present; thought process is organized and goal directed; Thought content is on tx; otherwise pertinent to relevant topics and without any delusional content, paranoid ideations or grandiosity; denies any SI/HI. Denies AVH and there is no evidence of perceptual disturbance. Patients insight and judgment fair. Diagnostics Vital Signs (24Hr): Vital Signs - 24 hr 02/13/25 20:00 02/13/25 21:08 02/14/25 08:00 Temperature 98.4 F 98.5 F Pulse Rate 84 80 Respiratory Rate 16 Blood Pressure 114/74 114/74 99/64 Pulse Oximetry 98 98 Oxygen Delivery Method Room Air Room Air BMI result Body Mass Index 20.4 Labs 02/09/25 08:36 Medications Medications Current Medications Acetaminophen (Acetaminophen 325 Mg Tablet) 650 mg PO Q6H PRN PRN Reason: Headache/Pain, Scale 1-10 Last Admin: 02/14/25 06:17 Dose: 650 mg Al Hydroxide/Mg Hydroxide (Magnesium Hydrox/Alum Hydrox 30 Ml Oral.Susp) 30 ml PO Q6H PRN PRN Reason: Heartburn/Nausea Clonidine HCl (Clonidine Hcl 0.1 Mg Tablet) 0.1 mg PO Q4H PRN; Protocol PRN Reason: moderate anxiety/sleep Last Admin: 02/13/25 21:08 Dose: 0.1 mg Clonidine HCl (Clonidine Hcl 0.1 Mg Tablet) 0.1 mg PO DAILY [facility]; Protocol Last Admin: 02/14/25 08:36 Dose: 0.1 mg Escitalopram Oxalate (Escitalopram Oxalate 10 Mg Tablet) 10 mg PO DAILY [facility] Last Admin: 02/14/25 08:37 Dose: 10 mg Guanfacine HCl (Guanfacine Hcl Er 1 Mg Tab.Er.24h) 1 mg PO DAILY [facility] Last Admin: 02/14/25 08:37 Dose: 1 mg Hydroxyzine HCl (Hydroxyzine Hcl 25 Mg Tablet) 25 mg PO Q6H PRN PRN Reason: mild anxiety Last Admin: 02/13/25 21:07 Dose: 25 mg Magnesium Hydroxide (Milk Of Magnesia 30 Ml Oral.Susp) 30 ml PO DAILY PRN PRN Reason: Constipation Last Admin: 02/08/25 22:05 Dose: 30 ml Nicotine (Nicotine 21 Mg Patch.Td24) 21 mg TRANSDERMA DAILY PRN PRN Reason: smoking cessation Nicotine Polacrilex (Nicotine Polacrilex 2 Mg Gum) 4 mg BUCCAL Q2H PRN PRN Reason: Nicotine Cravings Last Admin: 02/12/25 17:58 Dose: 4 mg Olanzapine (Olanzapine 5 Mg Tablet) 5 mg PO TID PRN PRN Reason: agitation Last Admin: 02/12/25 18:13 Dose: 5 mg Omeprazole (Omeprazole 20 Mg Capsule.Dr) 20 mg PO BID@0630,1630 [facility] Last Admin: 02/14/25 06:17 Dose: 20 mg Trazodone HCl (Trazodone Hcl 50 Mg Tablet) 50 mg PO BEDTIME MRX1 PRN PRN Reason: Insomnia Last Admin: 02/13/25 21:08 Dose: 50 mg Allergies Allergies Allergy/AdvReac Type Severity Reaction Status Date / Time No Known Allergies Allergy Unverified 05/29/20 19:25 [No Known Allergies*] Assessment & Plan Assessment & Plan (1) Major depressive disorder: Status: Acute Code(s): F32.9 - Major depressive disorder, single episode, unspecified (2) Alcohol use disorder: Status: Acute Code(s): F10.90 - Alcohol use, unspecified, uncomplicated Plan Patient is a 49-year-old male with history of depression, anxiety, alcohol use disorder who presents for depression and SI in the face of relational strife. Patient reports that about 2-3 weeks ago he was discharged from [facility] following suicidal gesture where he called ambulance himself. Says for the past 2 weeks he has been doing good, taking his medications, taking care of chores, responsibilities, and remaining sober...This past week, however, he drank on Tuesday, a half pt; on Tuesday he lost a credit card in his family members got angry at him, reprimanded him and criticizing him; this hurt his feelings and he again drank about a pt of liquor; feeling frustrated, lonely and he emotional he superficially cut his arm and called the ambulance; reflecting, patient said he was not wanting to but just feeling angry and wanting to hurt himself. Patient says that on his medications, when sober he feels overall in good mood however he acknowledges high level of emotional reactivity; he agrees to starting Intuniv to see if that can help with impulse control. Patient denies AVH; no manic behaviors Formulation/clinical reasoning: Patient struggles with emotional reactivity; agrees to try Intuniv understanding the risks/side effects, to see if this can help with impulsivity. Otherwise continue on home medication regimen Patient not in withdrawal; will DC [facility]WA 02/11 pt reports mood is good' and he feels back to his regular self; no SI. Pt eating and sleeping well; wants to discuss discharge. -in good behavioral/impulse control 02/12 Continues to report that he is doing well, mood is good, future oriented, able to focus and grateful for help received. Looking forward to discharge Plan: CV Q 15 minute checks Intuniv 1 mg daily Continue home medications DC CIWA 02/10: Continue current regimen and plans. Patient educated on: diagnosis Informed Consent: understands Reason for continued inpatient stay Substantial Risk for: stable for discharge Time Spent With Patient Time: Total time managing care of this patient today ____ minutes.
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
== END 2025-02-14 10:45 | disposition home or self-care (01) | DRG 751 ==
PROVIDERS: Admitting Provider Psychiatry & Neurology Psychiatry; PCP Student in an Organized Health Care Education/Training Program; Visit Provider Psychiatry & Neurology Psychiatry
DX: F33.2 Major depressive disorder, recurrent severe without psychotic features (principal); R45.851 Suicidal ideations; F10.90 Alcohol use, unspecified, uncomplicated; F17.210 Nicotine dependence, cigarettes, uncomplicated; Z71.6 Tobacco abuse counseling; Z79.899 Other long term (current) drug therapy
CPT/HCPCS: 36415; 80053; 80061; 83036; 84443

== ENCOUNTER → 2025-02-07 14:49 | Outpatient (BNV) | payer OTHER, SELFPAY | PROVIDERS: Admitting Provider Psychiatry & Neurology Psychiatry; PCP Student in an Organized Health Care Education/Training Program; Visit Provider Nurse Practitioner Family | DX: Z00.8 Encounter for other general examination (principal) | CPT/HCPCS: 99499 ==

== ENCOUNTER → 2025-02-07 14:49 | Outpatient (BNV) | payer OTHER, SELFPAY | PROVIDERS: Admitting Provider Psychiatry & Neurology Psychiatry; PCP Student in an Organized Health Care Education/Training Program; Visit Provider Psychiatry & Neurology Psychiatry | DX: F32.2 Major depressive disorder, single episode, severe without psychotic features (principal); F10.90 Alcohol use, unspecified, uncomplicated | CPT/HCPCS: 99231; 99232 ==

== ENCOUNTER 2025-02-28 12:42 | Inpatient (IN) | payer OTHER, SELFPAY ==
--- OUTSIDE RECORDS SUMMARY | 2024-03-20 09:00 | XMS_ITS ---
Author Organization [facility] Address [address], [place] [id number] Care Team Providers Care Blow Mold Technician Name Role Phone ZZArchive - DO NOT USE, no PCP Primary Care Prov ider Unavailable Bethel Orozco Unavailable [phone] Nisha Villalobos Unavailable Encounters Encounter Location Date Provider Diagnosis [facility] [address] [place] [phone] 03/20/2024 Nisha Villalobos Plan Of Treatment No Information Progress Notes * Jeff WILHELMsDOB:1975 (49 yo M)Acc No.[id number]:03/20/2024 Case Management Patient: Daniel Eric NGO Provider: Hollie Villalobos :1975 A ge:48 Y S ex:Male Date:03/20/2024 Address:[address] [place], [place] [id number] Pcp:no PCP ZAiden - DO NO T USE Subjective: * Chief Complaints: * * Medical History: Objective: Assessment: Plan: * Treatment: * Images: Billing Information: * Visit Code: * Procedure Codes: Care Plan Details* * Electronic signature of Dell Villalobos on 02/28/2025 at 03:15 PM EDT Sign off status: Pending * Provider: Hollie Villalobos Date: 03/20/2024 Generated for Deidra rogers/Mike/eTransmitting on: 02/28/2025 03:15 PM EDT
[2025-02-28 13:00] VITALS: BP 118/72; PULSE 100; O2SAT 98
[2025-02-28 13:05] VITALS: BP 110/76; PULSE 84; RESP 18; TEMP 36.2; O2SAT 99; BMI 21.6
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
--- NOTE | 2025-02-28 13:35 | ECG_ITS ---
Test Reason : CHECK QT INTERVAL Blood Pressure : */* mmHG Vent. Rate : 68 BPM Atrial Rate : 68 BPM P-R Int : 142 ms QRS Dur : 96 ms QT Int : 440 ms P-R-T Axes : 39 68 57 degrees QTcB Int : 467 ms Normal sinus rhythm Normal ECG No previous ECGs available Referred By: Isabelle Chambers Electronically Signed By: Adbullahi Andrade
[2025-02-28 13:50] LABS: MANUAL DIFF FLAG NO
[2025-02-28 13:53] LABS: Basophils Percent Auto 0.6 % (0-2); Eosinophils Absolute Auto 0.2 X10*3/uL (0.0-0.4); Eosinophils Percent Auto 4.6 % (0-4); Hematocrit 29.9 % (42.0-52.0); Hemoglobin 10.5 g/dl (14.0-18.0); Imm Gran Abs Auto 0.02 X10*3/uL (0.00-0.03); Imm Gran Pct Auto 0.4 % (0.0-0.4); Lymphocytes Absolute Auto 1.9 X10*3/uL (1.2-4.9); Lymphocytes Percent Auto 36.3 % (20-40); Mean Corpuscular HGB Conc 35.1 g/dl (31.0-36.0); Mean Corpuscular Hemoglobin 31.2 pg (27.0-33.0); Mean Corpuscular Volume 88.7 fL (80.0-98.0); Mean Platelet Volume 9.9 fL (9.4-12.4); Monocytes Absolute Auto 0.5 X10*3/uL (0.1-1.2); Monocytes Percent Auto 9.2 % (2-11); Neutrophils Absolute Auto 2.6 x10*3/uL (2.0-8.3); Neutrophils Percent Auto 48.9 % (45-73); Platelet Count 251 X10*3/uL (160-400); Red Blood Count 3.37 X10*6/uL (4.60-5.80); Red Cell Distribution Width 14.9 % (11.0-16.0); White Blood Count 5.2 X10*3/uL (4.8-10.8)
[2025-02-28 14:06] LABS: Alanine Aminotransferase 14 U/L (0-40); Albumin Level 3.7 g/dL (3.5-5.0); Alkaline Phosphatase 82 U/L (39-117); Anion Gap 12 (12-20); Aspartate Amino Transferase 21 U/L (5-37); Bilirubin Total 0.1 mg/dL (0.0-1.0); Blood Urea Nitrogen 17 mg/dL (9-16); Calcium 8.1 mg/dL (8.4-10.2); Carbon Dioxide 25 mmol/L (22-29); Chloride 114 mmol/L (96-108); Creatinine Clr Calc Pharmacy 61.4; Estimated Glomerular Filt Rate > 60; Ethanol 340 mg/dL; Glucose Random 91 mg/dL (60-115); Potassium 3.5 mmol/L (3.3-5.1); Sodium 147 mmol/L (135-145)
[2025-02-28 14:11] LABS: Acetaminophen LAB < 3 mcg/mL (<30); Salicylate < 5.0 mg/dL (15-30)
[2025-02-28 16:03] LABS: Appearance Urine Clear; Color Urine Yellow; Glucose Urine UA Negative (Negative); Leukocyte Esterase Urine Negative (Negative); Nitrite Urine Negative (Negative); Urine Blood Negative (Negative); Urine Ketones Negative (Negative); Urine Protein Negative (Neg-Trace)
[2025-02-28 16:12] LABS: Amphetamine Screen Urine Not Detected (Not Detect); Barbiturates, Urine Not Detected (Not Detect); Benzodiazepines Screen Urine Not Detected (Not Detect); Buprenorphine Scr Not Detected (Not Detect); Cannabinoid Screen Urine Not Detected (Not Detect); Cocaine Screen Urine Not Detected (Not Detect); Fentanyl, urine Not Detected (Not Detect); Methadone Screen, Urine Not Detected (Not Detect); Opiate Screen Urine Not Detected (Not Detect); Oxycodone Screen Urine Not Detected (Not Detect); Phencyclidine Screen Urine Not Detected (Not Detect)
[2025-02-28] MEDS: Omeprazole 20 MG CAPSULE.DR PO (18:13)
[2025-02-28 18:17] VITALS: BP 94/52; PULSE 72; RESP 18; TEMP 36.8; O2SAT 97
--- NOTE | 2025-02-28 18:17 | PC.NURSE ---
Arrived from home via ems. Changed over by security in main ED. Per ems patient sent SI texts to his niece who called 911 (ems was shown texts by niece). Patient initially denied SI but later stating he is having thoughts of self harm with plan to cut his wrists. Patient reports drink 1 pint of hard etoh daily. CIWA 1 at this time. Patient denies pain or discomfort. Ambulating to bathroom with steady gait. Ate well for dinner. Patient is aware that d/t ETOH level care team will not be able to see him until at least 8pm cathy.
[2025-02-28 21:57] VITALS: BP 117/74; PULSE 92; RESP 18; TEMP 36.7; O2SAT 96
[2025-03-01] MEDS: Omeprazole 20 MG CAPSULE.DR PO ×2 (05:58→17:59)
[2025-03-01] MEDS: Acetaminophen 325 MG TABLET 650 MG PO (06:01)
[2025-03-01 06:04] VITALS: BP 147/94; PULSE 76; RESP 16; TEMP 37.2; O2SAT 99
--- NOTE | 2025-03-01 06:53 | PC.NURSE ---
Assumed care of patient at 0645, patient appears to be in no apparent distress, sleeping, respirations even and unlabored. Continue plan of care for CARE team eval this am
[2025-03-01] MEDS: Pyridoxine HCl (Vitamin B6) 50 MG TABLET PO (08:34)
[2025-03-01] MEDS: Escitalopram Oxalate 10 MG TABLET PO (08:34)
[2025-03-01] MEDS: guanFACINE HCl ER 1 MG TAB.ER.24H PO (08:34)
[2025-03-01 08:35] VITALS: BP 147/94
[2025-03-01] MEDS: cloNIDine HCL 0.1 MG TABLET PO ×3 (08:35→20:47)
[2025-03-01 12:57] VITALS: BMI 21.5
[2025-03-01 13:00] VITALS: BP 158/99; PULSE 78; RESP 16; TEMP 36.9; O2SAT 99
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
[2025-03-01 15:18] VITALS: BP 165/103
--- NOTE | 2025-03-01 15:41 | PM.EVENT ---
Event Note Date of Service: 03/01/25 Event Note: Notified by nursing that patient has had elevated blood pressures today. Readings include 165/103, 158/99 and 147/94. Blood pressure readings prior to that were within normal limits 117/74, 94/52, and 110/76. Patient is admitted with alcohol use disorder and major depressive disorder, per nursing he denies any anxiety, receiving p.r.n. clonidine, Would continue to monitor Time Spent With Patient Time: Total time managing care of this patient today ____ minutes.
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
[2025-03-01 20:10] VITALS: BP 133/88; PULSE 80; RESP 16; TEMP 36.9; O2SAT 100
[2025-03-01] MEDS: Melatonin 3 MG TABLET 6 MG PO (20:47)
[2025-03-02] MEDS: Omeprazole 20 MG CAPSULE.DR PO ×2 (06:29→17:32)
[2025-03-02 08:00] VITALS: BP 115/76; PULSE 77; RESP 18; TEMP 36.4; O2SAT 100
[2025-03-02] MEDS: Multivitamin TABLET 1 TAB PO (08:38)
[2025-03-02] MEDS: cloNIDine HCL 0.1 MG TABLET PO ×2 (08:38→20:45)
[2025-03-02] MEDS: Pyridoxine HCl (Vitamin B6) 50 MG TABLET PO (08:38)
[2025-03-02] MEDS: guanFACINE HCl ER 1 MG TAB.ER.24H PO (08:38)
[2025-03-02] MEDS: Escitalopram Oxalate 10 MG TABLET PO (08:38)
[2025-03-02] MEDS: Thiamine HCL 100 MG TABLET PO (08:38)
[2025-03-02] MEDS: Folic Acid 1 MG TABLET PO (08:38)
[2025-03-02 08:40] LABS: Estimated Average Glucose 94 mg/dL; Hemoglobin A1c % 4.9 % (<6.0)
[2025-03-02 08:48] LABS: Cholesterol 297 mg/dL (<200); HDL Cholesterol 68 mg/dL (>40); LDL Cholesterol Calculated 179 mg/dL (<100); Magnesium 1.5 mg/dL (1.6-2.6); Triglycerides 254 mg/dL (<150)
[2025-03-02 09:03] LABS: Free T4 (Free Thyroxine) 0.76 ng/dL (0.71-1.85); Thyroid Stimulating Hormone 1.72 uIU/mL (0.32-4.0)
[2025-03-02 09:16] LABS: Folate 9.8 ng/mL (> or = 4.0); Vitamin B12 272 pg/mL (200-900)
--- NOTE | 2025-03-02 09:49 | HO.PSYCHPN ---
Subjective Subjective Date of Service: 03/02/25 Reason For Visit: depression, alcohol use disorder Subjective Notes: Conditional Voluntary Interim History: Patient was seen and discussed in rounds today. Records and plans were reviewed. He has been stable. No AVH. No SI. Compliant with medications. Eating and sleeping well. No changes were made today Review of Systems Review of Systems Yes all other systems are reviewed and are negative Mental Status Exam Mental Status Exam Narrative: In today's visit he is alert, oriented and pleasant. Normal speech. Moderate eye contact. Affect is appropriate and subdued. No SI. No signs of psychosis. No AVH. Cognitively intact. Moves all limbs. No gait abnormalities. Judgment is intact Diagnostics Vital Signs (24Hr): Vital Signs - 24 hr 03/01/25 13:00 03/01/25 15:18 03/01/25 20:10 Temperature 98.4 F 98.4 F Pulse Rate 78 80 Respiratory Rate 16 16 Blood Pressure 158/99 H 165/103 H 133/88 Pulse Oximetry 99 100 Oxygen Delivery Method Room Air Room Air 03/02/25 08:00 Temperature 97.5 F Pulse Rate 77 Respiratory Rate 18 Blood Pressure 115/76 Pulse Oximetry 100 Oxygen Delivery Method Room Air BMI result Body Mass Index 21.5 Labs 02/28/25 13:46 02/28/25 13:46 Labs: Laboratory Results - last 48 hr 02/28/25 02/28/25 03/02/25 13:46 15:55 07:48 WBC 5.2 RBC 3.37 L Hgb 10.5 L Hct 29.9 L MCV 88.7 MCH 31.2 MCHC 35.1 RDW 14.9 Plt Count 251 MPV 9.9 Immature Gran % (Auto) 0.4 Neut % (Auto) 48.9 Lymph % (Auto) 36.3 [place] % (Auto) 9.2 Eos % (Auto) 4.6 H Baso % (Auto) 0.6 Lymph # (Auto) 1.9 [place] # (Auto) 0.5 Eos # (Auto) 0.2 Baso # (Auto) 0.0 Abs Immat Gran (auto) 0.02 Absolute Neuts (auto) 2.6 Absolute Nucleated RBC 0.000 Nucleated RBC % (auto) 0.0 Sodium 147 H Potassium 3.5 Chloride 114 H Carbon Dioxide 25 Anion Gap 12 BUN 17 H Creatinine 1.24 Estim Creat Clear Calc 61.4 Estimated GFR > 60 Random Glucose 91 Estimat Average Glucose 94 Hemoglobin A1c % 4.9 Calcium 8.1 L D Magnesium 1.5 L Total Bilirubin 0.1 AST 21 ALT 14 Alkaline Phosphatase 82 Total Protein 6.0 L Albumin 3.7 Triglycerides 254 H Cholesterol 297 H LDL Cholesterol, Calc 179 H HDL Cholesterol 68 Vitamin B12 272 Folate 9.8 TSH 1.72 Free T4 0.76 Urine Color Yellow Urine Appearance Clear Urine pH 7.0 Ur Specific [place] 1.010 Urine Protein Negative Urine Glucose (UA) Negative Urine Ketones Negative Urine Blood Negative Urine Nitrite Negative Ur Leukocyte Esterase Negative Salicylates < 5.0 L Urine Opiates Screen Not Detected Ur Buprenorphine Scrn Not Detected Ur Oxycodone Screen Not Detected Urine Methadone Screen Not Detected Urine Fentanyl Screen Not Detected Acetaminophen < 3 Ur Barbiturates Screen Not Detected Ur Phencyclidine Scrn Not Detected Ur Amphetamines Screen Not Detected U Benzodiazepines Scrn Not Detected Urine Cocaine Screen Not Detected U Marijuana (THC) Screen Not Detected Ethyl Alcohol 340 H* Medications Medications Current Medications Acetaminophen (Acetaminophen 325 Mg Tablet) 650 mg PO Q6H PRN PRN Reason: Headache/Pain, Scale 1-10 Al Hydroxide/Mg Hydroxide (Magnesium Hydrox/Alum Hydrox 30 Ml Oral.Susp) 30 ml PO Q6H PRN PRN Reason: Heartburn/Nausea Clonidine HCl (Clonidine Hcl 0.1 Mg Tablet) 0.1 mg PO TID PRN; Protocol PRN Reason: Anxiety Last Admin: 03/01/25 20:47 Dose: 0.1 mg Clonidine HCl (Clonidine Hcl 0.1 Mg Tablet) 0.1 mg PO DAILY PRICILLA; Protocol Last Admin: 03/02/25 08:38 Dose: 0.1 mg Escitalopram Oxalate (Escitalopram Oxalate 10 Mg Tablet) 10 mg PO DAILY PRICILLA Last Admin: 03/02/25 08:38 Dose: 10 mg Folic Acid (Folic Acid 1 Mg Tablet) 1 mg PO DAILY PRICILLA Last Admin: 03/02/25 08:38 Dose: 1 mg Guanfacine HCl (Guanfacine Hcl Er 1 Mg Tab.Er.24h) 1 mg PO DAILY PRICILLA Last Admin: 03/02/25 08:38 Dose: 1 mg Hydroxyzine HCl (Hydroxyzine Hcl 25 Mg Tablet) 25 mg PO Q6H PRN PRN Reason: mild anxiety Lorazepam (Lorazepam 1 Mg Tablet) 1 mg PO Q2H PRN PRN Reason: ciwa 6-10 Lorazepam (Lorazepam 1 Mg Tablet) 2 mg PO Q2H PRN PRN Reason: ciwa 11+ Magnesium Hydroxide (Milk Of Magnesia 30 Ml Oral.Susp) 30 ml PO DAILY PRN PRN Reason: Constipation Melatonin (Melatonin 3 Mg Tablet) 6 mg PO BEDTIME PRN PRN Reason: Sleep Last Admin: 03/01/25 20:47 Dose: 6 mg Multivitamins/Vitamin C (Multivitamin Tablet) 1 tab PO DAILY [facility] Last Admin: 03/02/25 08:38 Dose: 1 tab Nicotine Polacrilex (Nicotine Polacrilex 2 Mg Gum) 4 mg BUCCAL Q2H PRN PRN Reason: Nicotine Cravings Olanzapine (Olanzapine 5 Mg Tablet) 5 mg PO DAILY PRN PRN Reason: agitation Omeprazole (Omeprazole 20 Mg Capsule.Dr) 20 mg PO BID@0630,1830 [facility] Last Admin: 03/02/25 06:29 Dose: 20 mg Pyridoxine HCl (Pyridoxine Hcl (Vitamin B6) 50 Mg Tablet) 50 mg PO DAILY [facility] Last Admin: 03/02/25 08:38 Dose: 50 mg Thiamine HCl (Thiamine Hcl 100 Mg Tablet) 100 mg PO DAILY [facility] Last Admin: 03/02/25 08:38 Dose: 100 mg Trazodone HCl (Trazodone Hcl 50 Mg Tablet) 50 mg PO BEDTIME MRX1 PRN PRN Reason: Insomnia Allergies Allergies Allergy/AdvReac Type Severity Reaction Status Date / Time No Known Allergies (No Known Allergy Unverified 02/28/25 13:10 Allergies*) Assessment & Plan Assessment & Plan (1) Major depressive disorder: Status: Acute Code(s): F32.9 - Major depressive disorder, single episode, unspecified (2) PTSD (post-traumatic stress disorder): Status: Acute Code(s): F43.10 - Post-traumatic stress disorder, unspecified (3) Alcohol use disorder: Status: Acute Code(s): F10.90 - Alcohol use, unspecified, uncomplicated (4) Homelessness: Status: Acute Code(s): Z59.00 - Homelessness unspecified Plan Patient is a 49-year-old male with history of MDD PTSD and alcohol use disorder [place] [facility] [place] no plan secondary to being kicked out of his nieces home. Plan: CV 15 minute safety checks Continue home medications CIWA protocol Hospitalist consult for hypertension Obtain collateral Encourage groups Discharge planning 03/02: Continue current regimen and plans Reason for continued inpatient stay Substantial Risk for: med/psych decompensation Time Spent With Patient Time: Total time managing care of this patient today ____ minutes.
[2025-03-02 19:15] VITALS: BP 153/90; PULSE 57; RESP 16; TEMP 36.4; O2SAT 100
[2025-03-02 20:45] VITALS: BP 118/82; PULSE 64; RESP 16
[2025-03-02] MEDS: Melatonin 3 MG TABLET 6 MG PO (20:45)
--- NOTE | 2025-03-03 04:24 | PC.NURSE ---
Pt appears to be sleeping comfortably. Breathing easy and unlabored, no diaphoresis noted.
[2025-03-03] MEDS: Omeprazole 20 MG CAPSULE.DR PO ×2 (06:29→17:41)
[2025-03-03 08:30] VITALS: BP 133/81; PULSE 65; RESP 17; TEMP 36.4; O2SAT 98
[2025-03-03] MEDS: cloNIDine HCL 0.1 MG TABLET PO (08:33)
[2025-03-03] MEDS: Pyridoxine HCl (Vitamin B6) 50 MG TABLET PO (08:33)
[2025-03-03] MEDS: guanFACINE HCl ER 1 MG TAB.ER.24H PO (08:33)
[2025-03-03] MEDS: Multivitamin TABLET 1 TAB PO (08:33)
[2025-03-03] MEDS: Thiamine HCL 100 MG TABLET PO (08:33)
[2025-03-03] MEDS: Folic Acid 1 MG TABLET PO (08:33)
[2025-03-03] MEDS: Escitalopram Oxalate 10 MG TABLET PO (08:33)
--- NOTE | 2025-03-03 09:04 | P.PNPSI_ITS ---
Subjective Subjective Date of Service: 03/03/25 Reason For Visit: depression, alcohol use disorder Subjective Notes: Conditional Voluntary Interim History: Patient was seen and discussed in rounds today. Records and plans were reviewed. He has been stable with very little engagement. Denies all psych symptoms. He has not scoring on his CIWA which I will leave in place for today and can be discontinued tomorrow. No SI. No complaints or side effects. Eating and sleeping adequately. No changes were made today Review of Systems Review of Systems Yes all other systems are reviewed and are negative Mental Status Exam Mental Status Exam Narrative: In today's visit he is alert, oriented and pleasant. Normal speech. Moderate eye contact. Affect is appropriate and subdued. No SI. No signs of psychosis. No AVH. Cognitively intact. Moves all limbs. No gait abnormalities. Judgment is intact Diagnostics Vital Signs (24Hr): Vital Signs - 24 hr 03/02/25 19:15 03/02/25 20:45 03/02/25 20:45 Temperature 97.6 F Pulse Rate 57 64 Respiratory Rate 16 16 Blood Pressure 153/90 H 118/82 118/82 Pulse Oximetry 100 Oxygen Delivery Method Room Air 03/03/25 08:30 Temperature 97.5 F Pulse Rate 65 Respiratory Rate 17 Blood Pressure 133/81 Pulse Oximetry 98 Oxygen Delivery Method Room Air BMI result Body Mass Index 21.5 Labs 02/28/25 13:46 02/28/25 13:46 Labs: Laboratory Results - last 48 hr 03/02/25 07:48 Estimat Average Glucose 94 Hemoglobin A1c % 4.9 Magnesium 1.5 L Triglycerides 254 H Cholesterol 297 H LDL Cholesterol, Calc 179 H HDL Cholesterol 68 Vitamin B12 272 Folate 9.8 TSH 1.72 Free T4 0.76 Medications Medications Current Medications Acetaminophen (Acetaminophen 325 Mg Tablet) 650 mg PO Q6H PRN PRN Reason: Headache/Pain, Scale 1-10 Al Hydroxide/Mg Hydroxide (Magnesium Hydrox/Alum Hydrox 30 Ml Oral.Susp) 30 ml PO Q6H PRN PRN Reason: Heartburn/Nausea Clonidine HCl (Clonidine Hcl 0.1 Mg Tablet) 0.1 mg PO TID PRN; Protocol PRN Reason: Anxiety Last Admin: 03/02/25 20:45 Dose: 0.1 mg Clonidine HCl (Clonidine Hcl 0.1 Mg Tablet) 0.1 mg PO DAILY PRICILLA; Protocol Last Admin: 03/03/25 08:33 Dose: 0.1 mg Escitalopram Oxalate (Escitalopram Oxalate 10 Mg Tablet) 10 mg PO DAILY [facility] Last Admin: 03/03/25 08:33 Dose: 10 mg Folic Acid (Folic Acid 1 Mg Tablet) 1 mg PO DAILY [facility] Last Admin: 03/03/25 08:33 Dose: 1 mg Guanfacine HCl (Guanfacine Hcl Er 1 Mg Tab.Er.24h) 1 mg PO DAILY [facility] Last Admin: 03/03/25 08:33 Dose: 1 mg Hydroxyzine HCl (Hydroxyzine Hcl 25 Mg Tablet) 25 mg PO Q6H PRN PRN Reason: mild anxiety Lorazepam (Lorazepam 1 Mg Tablet) 1 mg PO Q2H PRN PRN Reason: ciwa 6-10 Lorazepam (Lorazepam 1 Mg Tablet) 2 mg PO Q2H PRN PRN Reason: ciwa 11+ Magnesium Hydroxide (Milk Of Magnesia 30 Ml Oral.Susp) 30 ml PO DAILY PRN PRN Reason: Constipation Melatonin (Melatonin 3 Mg Tablet) 6 mg PO BEDTIME PRN PRN Reason: Sleep Last Admin: 03/02/25 20:45 Dose: 6 mg Multivitamins/Vitamin C (Multivitamin Tablet) 1 tab PO DAILY [facility] Last Admin: 03/03/25 08:33 Dose: 1 tab Nicotine Polacrilex (Nicotine Polacrilex 2 Mg Gum) 4 mg BUCCAL Q2H PRN PRN Reason: Nicotine Cravings Olanzapine (Olanzapine 5 Mg Tablet) 5 mg PO DAILY PRN PRN Reason: agitation Omeprazole (Omeprazole 20 Mg Capsule.Dr) 20 mg PO BID@0630,1830 [facility] Last Admin: 03/03/25 06:29 Dose: 20 mg Pyridoxine HCl (Pyridoxine Hcl (Vitamin B6) 50 Mg Tablet) 50 mg PO DAILY [facility] Last Admin: 03/03/25 08:33 Dose: 50 mg Thiamine HCl (Thiamine Hcl 100 Mg Tablet) 100 mg PO DAILY [facility] Last Admin: 03/03/25 08:33 Dose: 100 mg Trazodone HCl (Trazodone Hcl 50 Mg Tablet) 50 mg PO BEDTIME MRX1 PRN PRN Reason: Insomnia Allergies Allergies Allergy/AdvReac Type Severity Reaction Status Date / Time No Known Allergies (No Known Allergy Unverified 02/28/25 13:10 Allergies*) Assessment & Plan Assessment & Plan (1) Major depressive disorder: Status: Acute Code(s): F32.9 - Major depressive disorder, single episode, unspecified (2) PTSD (post-traumatic stress disorder): Status: Acute Code(s): F43.10 - Post-traumatic stress disorder, unspecified (3) Alcohol use disorder: Status: Acute Code(s): F10.90 - Alcohol use, unspecified, uncomplicated (4) Homelessness: Status: Acute Code(s): Z59.00 - Homelessness unspecified Plan Patient is a 49-year-old male with history of MDD PTSD and alcohol use disorder was brought in by ambulance to [facility] [place] due to suicidal ideation no plan secondary to being kicked out of his nieces home. Plan: CV 15 minute safety checks Continue home medications CIWA protocol Hospitalist consult for hypertension Obtain collateral Encourage groups Discharge planning 03/02: Continue current regimen and plans 03/03: Continue current regimen and plans Reason for continued inpatient stay Substantial Risk for: med/psych decompensation Time Spent With Patient Time: Total time managing care of this patient today ____ minutes.
[2025-03-03] MEDS: Acetaminophen 325 MG TABLET 650 MG PO (12:28)
[2025-03-03 20:00] VITALS: BP 159/92; PULSE 70; RESP 16; TEMP 36.4; O2SAT 100
[2025-03-03] MEDS: Melatonin 3 MG TABLET 6 MG PO (21:58)
[2025-03-04] MEDS: Omeprazole 20 MG CAPSULE.DR PO ×2 (06:26→17:12)
[2025-03-04 08:00] VITALS: BP 146/93; PULSE 68; RESP 16; TEMP 36.6; O2SAT 99
[2025-03-04] MEDS: Acetaminophen 325 MG TABLET 650 MG PO ×2 (08:33→20:57)
[2025-03-04] MEDS: Multivitamin TABLET 1 TAB PO (08:34)
[2025-03-04] MEDS: Escitalopram Oxalate 10 MG TABLET PO (08:35)
[2025-03-04] MEDS: Thiamine HCL 100 MG TABLET PO (08:35)
[2025-03-04] MEDS: Folic Acid 1 MG TABLET PO (08:35)
[2025-03-04] MEDS: guanFACINE HCl ER 1 MG TAB.ER.24H PO (08:36)
[2025-03-04] MEDS: Pyridoxine HCl (Vitamin B6) 50 MG TABLET PO (08:36)
[2025-03-04] MEDS: cloNIDine HCL 0.1 MG TABLET PO (08:36)
--- NOTE | 2025-03-04 09:17 | HO.PSYCHPN ---
Subjective Subjective Date of Service: 03/04/25 Reason For Visit: depression, alcohol use disorder Subjective Notes: Conditional Voluntary Interim History: Active on unit, social with peers. attending groups. Pt reports feeling okay today; focused on sobriety. Pt stated, I want to get into a substance abuse program. I'm hoping I can go to the [facility] . denies withdrawal symptoms. DC CIWA. Per nursing, slept 8 hours. denies SI/HI/VH/AH. Continue current tx plan. Medication Compliance: Yes Side effects from medications: No Attending Groups: Yes Mental Status Exam Mental Status Exam Narrative: Pt is alert and oriented; behavior is cooperative and calm; dressed in casual attire; mood is described as okay ; eye contact appropriate; Speech is normal rate, volume and not pressured; thought process is organized and goal directed; Thought content is on tx; denies SI/HI/VH/AH. Diagnostics Vital Signs (24Hr): Vital Signs - 24 hr 03/03/25 20:00 03/04/25 08:00 Temperature 97.5 F 97.9 F Pulse Rate 70 68 Respiratory Rate 16 16 Blood Pressure 159/92 H 146/93 H Pulse Oximetry 100 99 Oxygen Delivery Method Room Air Room Air BMI result Body Mass Index 21.5 Labs 02/28/25 13:46 02/28/25 13:46 Medications Medications Current Medications Acetaminophen (Acetaminophen 325 Mg Tablet) 650 mg PO Q6H PRN PRN Reason: Headache/Pain, Scale 1-10 Last Admin: 03/04/25 08:33 Dose: 650 mg Al Hydroxide/Mg Hydroxide (Magnesium Hydrox/Alum Hydrox 30 Ml Oral.Susp) 30 ml PO Q6H PRN PRN Reason: Heartburn/Nausea Clonidine HCl (Clonidine Hcl 0.1 Mg Tablet) 0.1 mg PO TID PRN; Protocol PRN Reason: Anxiety Last Admin: 03/02/25 20:45 Dose: 0.1 mg Clonidine HCl (Clonidine Hcl 0.1 Mg Tablet) 0.1 mg PO DAILY PRICILLA; Protocol Last Admin: 03/04/25 08:36 Dose: 0.1 mg Escitalopram Oxalate (Escitalopram Oxalate 10 Mg Tablet) 10 mg PO DAILY PRICILLA Last Admin: 03/04/25 08:35 Dose: 10 mg Folic Acid (Folic Acid 1 Mg Tablet) 1 mg PO DAILY PRICILLA Last Admin: 03/04/25 08:35 Dose: 1 mg Guanfacine HCl (Guanfacine Hcl Er 1 Mg Tab.Er.24h) 1 mg PO DAILY [facility] Last Admin: 03/04/25 08:36 Dose: 1 mg Hydroxyzine HCl (Hydroxyzine Hcl 25 Mg Tablet) 25 mg PO Q6H PRN PRN Reason: mild anxiety Lorazepam (Lorazepam 1 Mg Tablet) 1 mg PO Q2H PRN PRN Reason: ciwa 6-10 Lorazepam (Lorazepam 1 Mg Tablet) 2 mg PO Q2H PRN PRN Reason: ciwa 11+ Magnesium Hydroxide (Milk Of Magnesia 30 Ml Oral.Susp) 30 ml PO DAILY PRN PRN Reason: Constipation Melatonin (Melatonin 3 Mg Tablet) 6 mg PO BEDTIME PRN PRN Reason: Sleep Last Admin: 03/03/25 21:58 Dose: 6 mg Multivitamins/Vitamin C (Multivitamin Tablet) 1 tab PO DAILY [facility] Last Admin: 03/04/25 08:34 Dose: 1 tab Nicotine Polacrilex (Nicotine Polacrilex 2 Mg Gum) 4 mg BUCCAL Q2H PRN PRN Reason: Nicotine Cravings Olanzapine (Olanzapine 5 Mg Tablet) 5 mg PO DAILY PRN PRN Reason: agitation Omeprazole (Omeprazole 20 Mg Capsule.Dr) 20 mg PO BID@0630,1830 [facility] Last Admin: 03/04/25 06:26 Dose: 20 mg Pyridoxine HCl (Pyridoxine Hcl (Vitamin B6) 50 Mg Tablet) 50 mg PO DAILY [facility] Last Admin: 03/04/25 08:36 Dose: 50 mg Thiamine HCl (Thiamine Hcl 100 Mg Tablet) 100 mg PO DAILY [facility] Last Admin: 03/04/25 08:35 Dose: 100 mg Trazodone HCl (Trazodone Hcl 50 Mg Tablet) 50 mg PO BEDTIME MRX1 PRN PRN Reason: Insomnia Allergies Allergies Allergy/AdvReac Type Severity Reaction Status Date / Time No Known Allergies (No Known Allergy Unverified 02/28/25 13:10 Allergies*) Assessment & Plan Assessment & Plan (1) Major depressive disorder: Status: Acute Code(s): F32.9 - Major depressive disorder, single episode, unspecified (2) PTSD (post-traumatic stress disorder): Status: Acute Code(s): F43.10 - Post-traumatic stress disorder, unspecified (3) Alcohol use disorder: Status: Acute Code(s): F10.90 - Alcohol use, unspecified, uncomplicated (4) Homelessness: Status: Acute Code(s): Z59.00 - Homelessness unspecified Plan Patient is a 49-year-old male with history of MDD PTSD and alcohol use disorder was brought in by ambulance to [facility] due to suicidal ideation no plan secondary to being kicked out of his nieces home. Plan: CV 15 minute safety checks Continue home medications CIWA protocol Hospitalist consult for hypertension Obtain collateral Encourage groups Discharge planning 03/02: Continue current regimen and plans 03/03: Continue current regimen and plans 03/04: Active on unit, social with peers. attending groups. Pt reports feeling okay today; focused on sobriety. Pt stated, I want to get into a substance abuse program. I'm hoping I can go to the [facility] . denies withdrawal symptoms. PRUDENCIO WALLIS. Per nursing, slept 8 hours. denies SI/HI/VH/AH. Continue current tx plan. Patient educated on: diagnosis, medication risk/benefits and therapeutic strategies Reason for continued inpatient stay Substantial Risk for: med/psych decompensation Time Spent With Patient Time: Total time managing care of this patient today _20___ minutes.
[2025-03-04 20:00] VITALS: BP 153/92; PULSE 81; RESP 16; TEMP 36.6; O2SAT 100
[2025-03-04] MEDS: Melatonin 3 MG TABLET 6 MG PO (20:57)
[2025-03-05] MEDS: Omeprazole 20 MG CAPSULE.DR PO ×2 (06:33→17:30)
[2025-03-05 08:00] VITALS: BP 131/84; PULSE 78; RESP 14; TEMP 37; O2SAT 98
[2025-03-05] MEDS: Multivitamin TABLET 1 TAB PO (08:16)
[2025-03-05] MEDS: Pyridoxine HCl (Vitamin B6) 50 MG TABLET PO (08:17)
[2025-03-05] MEDS: Thiamine HCL 100 MG TABLET PO (08:17)
[2025-03-05] MEDS: Folic Acid 1 MG TABLET PO (08:17)
[2025-03-05] MEDS: Escitalopram Oxalate 10 MG TABLET PO (08:17)
[2025-03-05] MEDS: cloNIDine HCL 0.1 MG TABLET PO (08:18)
[2025-03-05] MEDS: guanFACINE HCl ER 1 MG TAB.ER.24H PO (08:18)
--- NOTE | 2025-03-05 09:57 | P.PNPSI_ITS ---
Subjective Subjective Date of Service: 03/05/25 Reason For Visit: depression, alcohol use disorder Subjective Notes: Conditional Voluntary Interim History: Active on unit, social with peers. attending groups. Pt reports feeling good today; continues focused on obtaining a bed at substance abuse program. pt reports if he is unable to obtain he will go to [facility]. denies SI/HI/VH/AH. Continue current tx plan. Medication Compliance: Yes Side effects from medications: No Attending Groups: Yes Mental Status Exam Mental Status Exam Narrative: Pt is alert and oriented; behavior is cooperative and calm; dressed in casual attire; mood is described as good ; eye contact appropriate; Speech is normal rate, volume and not pressured; thought process is organized and goal directed; Thought content is on tx; denies SI/HI/VH/AH. Diagnostics Vital Signs (24Hr): Vital Signs - 24 hr 03/04/25 20:00 03/05/25 08:00 Temperature 98 F 98.6 F Pulse Rate 81 78 Respiratory Rate 16 14 Blood Pressure 153/92 H 131/84 Pulse Oximetry 100 98 Oxygen Delivery Method Room Air Room Air BMI result Body Mass Index 21.5 Labs 02/28/25 13:46 02/28/25 13:46 Medications Medications Current Medications Acetaminophen (Acetaminophen 325 Mg Tablet) 650 mg PO Q6H PRN PRN Reason: Headache/Pain, Scale 1-10 Last Admin: 03/04/25 20:57 Dose: 650 mg Al Hydroxide/Mg Hydroxide (Magnesium Hydrox/Alum Hydrox 30 Ml Oral.Susp) 30 ml PO Q6H PRN PRN Reason: Heartburn/Nausea Clonidine HCl (Clonidine Hcl 0.1 Mg Tablet) 0.1 mg PO TID PRN; Protocol PRN Reason: Anxiety Last Admin: 03/02/25 20:45 Dose: 0.1 mg Clonidine HCl (Clonidine Hcl 0.1 Mg Tablet) 0.1 mg PO DAILY PRICILLA; Protocol Last Admin: 03/05/25 08:18 Dose: 0.1 mg Escitalopram Oxalate (Escitalopram Oxalate 10 Mg Tablet) 10 mg PO DAILY [facility] Last Admin: 03/05/25 08:17 Dose: 10 mg Folic Acid (Folic Acid 1 Mg Tablet) 1 mg PO DAILY [facility] Last Admin: 03/05/25 08:17 Dose: 1 mg Guanfacine HCl (Guanfacine Hcl Er 1 Mg Tab.Er.24h) 1 mg PO DAILY [facility] Last Admin: 03/05/25 08:18 Dose: 1 mg Hydroxyzine HCl (Hydroxyzine Hcl 25 Mg Tablet) 25 mg PO Q6H PRN PRN Reason: mild anxiety Ibuprofen (Ibuprofen 600 Mg Tablet) 600 mg PO Q8H PRN PRN Reason: Pain, Moderate(Pain Scale 4-6) Magnesium Hydroxide (Milk Of Magnesia 30 Ml Oral.Susp) 30 ml PO DAILY PRN PRN Reason: Constipation Melatonin (Melatonin 3 Mg Tablet) 6 mg PO BEDTIME PRN PRN Reason: Sleep Last Admin: 03/04/25 20:57 Dose: 6 mg Multivitamins/Vitamin C (Multivitamin Tablet) 1 tab PO DAILY [facility] Last Admin: 03/05/25 08:16 Dose: 1 tab Nicotine Polacrilex (Nicotine Polacrilex 2 Mg Gum) 4 mg BUCCAL Q2H PRN PRN Reason: Nicotine Cravings Olanzapine (Olanzapine 5 Mg Tablet) 5 mg PO DAILY PRN PRN Reason: agitation Omeprazole (Omeprazole 20 Mg Capsule.Dr) 20 mg PO BID@0630,1830 [facility] Last Admin: 03/05/25 06:33 Dose: 20 mg Pyridoxine HCl (Pyridoxine Hcl (Vitamin B6) 50 Mg Tablet) 50 mg PO DAILY [facility] Last Admin: 03/05/25 08:17 Dose: 50 mg Thiamine HCl (Thiamine Hcl 100 Mg Tablet) 100 mg PO DAILY [facility] Last Admin: 03/05/25 08:17 Dose: 100 mg Trazodone HCl (Trazodone Hcl 50 Mg Tablet) 50 mg PO BEDTIME MRX1 PRN PRN Reason: Insomnia Allergies Allergies Allergy/AdvReac Type Severity Reaction Status Date / Time No Known Allergies (No Known Allergy Unverified 02/28/25 13:10 Allergies*) Assessment & Plan Assessment & Plan (1) Major depressive disorder: Status: Acute Code(s): F32.9 - Major depressive disorder, single episode, unspecified (2) PTSD (post-traumatic stress disorder): Status: Acute Code(s): F43.10 - Post-traumatic stress disorder, unspecified (3) Alcohol use disorder: Status: Acute Code(s): F10.90 - Alcohol use, unspecified, uncomplicated (4) Homelessness: Status: Acute Code(s): Z59.00 - Homelessness unspecified Plan Patient is a 49-year-old male with history of MDD PTSD and alcohol use disorder was [place] ambulance [place] [facility] [place] to suicidal ideation no plan secondary to being kicked out of his nieces home. Plan: CV 15 minute safety checks Continue home medications CIWA protocol Hospitalist consult for hypertension Obtain collateral Encourage groups Discharge planning 03/02: Continue current regimen and plans 03/03: Continue current regimen and plans 03/04: Active on unit, social with peers. attending groups. Pt reports feeling okay today; focused on sobriety. Pt stated, I want to get into a substance abuse program. I'm hoping I can go to the [facility] . denies withdrawal symptoms. DC BIMAL. Per nursing, slept 8 hours. denies SI/HI/VH/AH. Continue current tx plan. 03/05: Active on unit, social with peers. attending groups. Pt reports feeling good today; continues focused on obtaining a bed at substance abuse program. pt reports if he is unable to obtain he will go to [facility]. denies SI/HI/VH/AH. Continue current tx plan. Patient educated on: diagnosis, medication risk/benefits and therapeutic strategies Reason for continued inpatient stay Substantial Risk for: med/psych decompensation Time Spent With Patient Time: Total time managing care of this patient today _20___ minutes.
[2025-03-05] MEDS: Acetaminophen 325 MG TABLET 650 MG PO (15:53)
[2025-03-05 20:00] VITALS: BP 138/95; PULSE 72; RESP 16; TEMP 36.4; O2SAT 100
[2025-03-05] MEDS: Melatonin 3 MG TABLET 6 MG PO (21:14)
[2025-03-06] MEDS: Omeprazole 20 MG CAPSULE.DR PO ×2 (06:38→16:52)
[2025-03-06 07:58] VITALS: BP 139/70; PULSE 98; RESP 16; TEMP 36.4; O2SAT 98
[2025-03-06] MEDS: Folic Acid 1 MG TABLET PO (08:24)
[2025-03-06] MEDS: Escitalopram Oxalate 10 MG TABLET PO (08:24)
[2025-03-06] MEDS: guanFACINE HCl ER 1 MG TAB.ER.24H PO (08:24)
[2025-03-06] MEDS: Thiamine HCL 100 MG TABLET PO (08:24)
[2025-03-06] MEDS: Pyridoxine HCl (Vitamin B6) 50 MG TABLET PO (08:24)
[2025-03-06] MEDS: cloNIDine HCL 0.1 MG TABLET PO (08:24)
[2025-03-06] MEDS: Multivitamin TABLET 1 TAB PO (08:24)
--- NOTE | 2025-03-06 10:44 | P.PNPSI_ITS ---
Subjective Subjective Date of Service: 03/06/25 Reason For Visit: depression, alcohol use disorder Subjective Notes: Conditional Voluntary Interim History: Pt continues to reports feeling good ; awaiting to hear back from substance abuse program. Plan will be to discharge to alf if not accepted and to follow up with outpatient providers. denies SI/HI/VH/AH. Continue current tx plan. Medication Compliance: Yes Side effects from medications: No Attending Groups: Yes Mental Status Exam Mental Status Exam Narrative: Pt is alert and oriented; behavior is cooperative and calm; dressed in casual attire; mood is described as good ; eye contact appropriate; Speech is normal rate, volume and not pressured; thought process is organized and goal directed; Thought content is on tx; denies SI/HI/VH/AH. Diagnostics Vital Signs (24Hr): Vital Signs - 24 hr 03/05/25 20:00 03/06/25 07:58 Temperature 97.6 F 97.6 F Pulse Rate 72 98 Respiratory Rate 16 16 Blood Pressure 138/95 H 139/70 Pulse Oximetry 100 98 Oxygen Delivery Method Room Air Room Air BMI result Body Mass Index 21.5 Labs 02/28/25 13:46 02/28/25 13:46 Medications Medications Current Medications Acetaminophen (Acetaminophen 325 Mg Tablet) 650 mg PO Q6H PRN PRN Reason: Headache/Pain, Scale 1-10 Last Admin: 03/05/25 15:53 Dose: 650 mg Al Hydroxide/Mg Hydroxide (Magnesium Hydrox/Alum Hydrox 30 Ml Oral.Susp) 30 ml PO Q6H PRN PRN Reason: Heartburn/Nausea Clonidine HCl (Clonidine Hcl 0.1 Mg Tablet) 0.1 mg PO TID PRN; Protocol PRN Reason: Anxiety Last Admin: 03/02/25 20:45 Dose: 0.1 mg Clonidine HCl (Clonidine Hcl 0.1 Mg Tablet) 0.1 mg PO DAILY PRICILLA; Protocol Last Admin: 03/06/25 08:24 Dose: 0.1 mg Escitalopram Oxalate (Escitalopram Oxalate 10 Mg Tablet) 10 mg PO DAILY PRICILLA Last Admin: 03/06/25 08:24 Dose: 10 mg Folic Acid (Folic Acid 1 Mg Tablet) 1 mg PO DAILY [facility]A Last Admin: 03/06/25 08:24 Dose: 1 mg Guanfacine HCl (Guanfacine Hcl Er 1 Mg Tab.Er.24h) 1 mg PO DAILY PR[facility] Last Admin: 03/06/25 08:24 Dose: 1 mg Hydroxyzine HCl (Hydroxyzine Hcl 25 Mg Tablet) 25 mg PO Q6H PRN PRN Reason: mild anxiety Ibuprofen (Ibuprofen 600 Mg Tablet) 600 mg PO Q8H PRN PRN Reason: Pain, Moderate(Pain Scale 4-6) Magnesium Hydroxide (Milk Of Magnesia 30 Ml Oral.Susp) 30 ml PO DAILY PRN PRN Reason: Constipation Melatonin (Melatonin 3 Mg Tablet) 6 mg PO BEDTIME PRN PRN Reason: Sleep Last Admin: 03/05/25 21:14 Dose: 6 mg Multivitamins/Vitamin C (Multivitamin Tablet) 1 tab PO DAILY [facility] Last Admin: 03/06/25 08:24 Dose: 1 tab Nicotine Polacrilex (Nicotine Polacrilex 2 Mg Gum) 4 mg BUCCAL Q2H PRN PRN Reason: Nicotine Cravings Olanzapine (Olanzapine 5 Mg Tablet) 5 mg PO DAILY PRN PRN Reason: agitation Omeprazole (Omeprazole 20 Mg Capsule.Dr) 20 mg PO BID@0630,1830 [facility] Last Admin: 03/06/25 06:38 Dose: 20 mg Pyridoxine HCl (Pyridoxine Hcl (Vitamin B6) 50 Mg Tablet) 50 mg PO DAILY [facility] Last Admin: 03/06/25 08:24 Dose: 50 mg Thiamine HCl (Thiamine Hcl 100 Mg Tablet) 100 mg PO DAILY [facility] Last Admin: 03/06/25 08:24 Dose: 100 mg Trazodone HCl (Trazodone Hcl 50 Mg Tablet) 50 mg PO BEDTIME MRX1 PRN PRN Reason: Insomnia Allergies Allergies Allergy/AdvReac Type Severity Reaction Status Date / Time No Known Allergies (No Known Allergy Unverified 02/28/25 13:10 Allergies*) Assessment & Plan Assessment & Plan (1) Major depressive disorder: Status: Acute Code(s): F32.9 - Major depressive disorder, single episode, unspecified (2) PTSD (post-traumatic stress disorder): Status: Acute Code(s): F43.10 - Post-traumatic stress disorder, unspecified (3) Alcohol use disorder: Status: Acute Code(s): F10.90 - Alcohol use, unspecified, uncomplicated (4) Homelessness: Status: Acute Code(s): Z59.00 - Homelessness unspecified Plan Patient is a 49-year-old male with history of MDD PTSD and alcohol use disorder was [place] [facility] ideation no plan secondary to being kicked out of his nieces home. Plan: CV 15 minute safety checks Continue home medications CIWA protocol Hospitalist consult for hypertension Obtain collateral Encourage groups Discharge planning 03/02: Continue current regimen and plans 03/03: Continue current regimen and plans 03/04: Active on unit, social with peers. attending groups. Pt reports feeling okay today; focused on sobriety. Pt stated, I want to get into a substance abuse program. I'm hoping I can go to the [facility] . denies withdrawal symptoms. PRUDENCIO WALLIS. Per nursing, slept 8 hours. denies SI/HI/VH/AH. Continue current tx plan. 03/05: Active on unit, social with peers. attending groups. Pt reports feeling good today; continues focused on obtaining a bed at substance abuse program. pt reports if he is unable to obtain he will go to [facility]. denies SI/HI/VH/AH. Continue current tx plan. 03/06: Pt continues to reports feeling good ; awaiting to hear back from substance abuse program. Plan will be to discharge to alf if not accepted and to follow up with outpatient providers. denies SI/HI/VH/AH. Continue current tx plan. Patient educated on: diagnosis, medication risk/benefits and therapeutic strategies Reason for continued inpatient stay Substantial Risk for: stable for discharge Time Spent With Patient Time: Total time managing care of this patient today _20___ minutes.
[2025-03-06 20:00] VITALS: BP 139/89; PULSE 80; RESP 18; TEMP 37.3; O2SAT 98
[2025-03-06] MEDS: hydrOXYzine HCL 25 MG TABLET PO (20:56)
[2025-03-06] MEDS: Melatonin 3 MG TABLET 6 MG PO (20:56)
[2025-03-06] MEDS: Acetaminophen 325 MG TABLET 650 MG PO (21:01)
[2025-03-07] MEDS: Omeprazole 20 MG CAPSULE.DR PO (06:37)
[2025-03-07 07:59] VITALS: BP 142/89; PULSE 75; RESP 16; TEMP 36.4; O2SAT 100
[2025-03-07] MEDS: guanFACINE HCl ER 1 MG TAB.ER.24H PO (08:21)
[2025-03-07] MEDS: Thiamine HCL 100 MG TABLET PO (08:21)
[2025-03-07] MEDS: Folic Acid 1 MG TABLET PO (08:21)
[2025-03-07] MEDS: Multivitamin TABLET 1 TAB PO (08:22)
[2025-03-07] MEDS: cloNIDine HCL 0.1 MG TABLET PO (08:22)
[2025-03-07] MEDS: Escitalopram Oxalate 10 MG TABLET PO (08:22)
[2025-03-07] MEDS: Pyridoxine HCl (Vitamin B6) 50 MG TABLET PO (08:22)
[2025-03-07] MEDS: Acetaminophen 325 MG TABLET 650 MG PO (10:52)
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
== END 2025-03-07 13:20 | disposition home or self-care (01) | DRG 754 ==
LOC: HO.ED 17:29 → HO.PADLT16 03-01 12:16
PROVIDERS: Physician Assistant Medical; Admitting Provider Clinical Nurse Specialist Psychiatric/Mental Health, Adult; Emergency Provider Emergency Medicine; Responsible Provider Registered Nurse; Visit Provider Psychiatry & Neurology Psychiatry
DX: F32.9 Major depressive disorder, single episode, unspecified (principal); R45.851 Suicidal ideations; F43.10 Post-traumatic stress disorder, unspecified; Y90.8 Blood alcohol level of 240 mg/100 ml or more; F10.90 Alcohol use, unspecified, uncomplicated; Z59.02 Unsheltered homelessness; Z79.899 Other long term (current) drug therapy
CPT/HCPCS: 36415; 80053; 80061; 80143; 80179; 80307; 81003; 82607; 82746; 83036; 83735; 84439; 84443; 85025; 93005; 99285; S9485

== ENCOUNTER → 2025-02-28 13:35 | Outpatient (BNV) | payer OTHER, SELFPAY | PROVIDERS: Admitting Provider Clinical Nurse Specialist Psychiatric/Mental Health, Adult; Emergency Provider Emergency Medicine; Responsible Provider Registered Nurse; Visit Provider Internal Medicine Cardiovascular Disease | DX: Z13.6 Encounter for screening for cardiovascular disorders (principal) | CPT/HCPCS: 93010 ==

== ENCOUNTER → 2025-03-01 10:57 | Outpatient (BNV) | payer OTHER, SELFPAY | PROVIDERS: Admitting Provider Clinical Nurse Specialist Psychiatric/Mental Health, Adult; Emergency Provider Emergency Medicine; Responsible Provider Registered Nurse; Visit Provider Psychiatry & Neurology Psychiatry | DX: F32.2 Major depressive disorder, single episode, severe without psychotic features (principal); F43.11 Post-traumatic stress disorder, acute; F10.90 Alcohol use, unspecified, uncomplicated; Z59.00 Homelessness unspecified | CPT/HCPCS: 99231; 99232; 99233 ==